=== PATIENT | male | born 1965 | race Caucasian/White ===

== ENCOUNTER → 2016-10-11 | Outpatient (CLI) | payer OTHER ==
[~2016-10-11] MED LIST: ASPI-482 PO; OLME1TAB PO
[2016-10-11 09:25] LABS: CALCIUM 9.5 mg/dL (8.5-10.1); CREATININE 1.4 mg/dL (0.7-1.3); POTASSIUM 3.9 mmol/L (3.5-5.1)
[2016-10-11 09:29] LABS: GFR 53.4
== END | disposition home or self-care (01) ==
LOC: LAB 08:16
PROVIDERS: ATTEND Internal Medicine Cardiovascular Disease
DX: I11.9 Hypertensive heart disease without heart failure (principal)
CPT/HCPCS: 36415; 80048

== ENCOUNTER 2016-11-02 14:45 | Observation (INO) | payer OTHER ==
[~2016-11-02] VITALS: Ht 175.3 cm; Wt 89.4 kg
[2016-11-02 15:18] LABS: BASO % 1 % (0-3); EOS # 0.1 x10^3/uL (0.0-0.7); EOS % 1 % (0-3); HEMATOCRIT 45.6 % (39.0-53.0); HEMOGLOBIN 15.6 g/dL (13.0-17.5); LYMPH # 1.8 x10^3/uL (1.0-4.8); LYMPH % 33 % (24-48); MEAN CORPUSCULAR HEMOGLOBIN 31 pg (25-35); MEAN CORPUSCULAR HGB CONC 34 g/dL (31-37); MEAN CORPUSCULAR VOLUME 91 fL (79-100); MONO # 0.4 x10^3/uL (0.0-1.1); MONO % 7 % (0-9); NEUT # 3.2 x10^3uL (1.8-7.7); NEUT % 58 % (31-73); PLATELET COUNT 203 x10^3/uL (140-400); RED BLOOD COUNT 5.01 x10^6/uL (4.30-5.70); WHITE BLOOD COUNT 5.5 x10^3/uL (4.0-11.0)
--- NOTE | 2016-11-02 15:23 | EKG ---
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
--- NOTE | 2016-11-02 15:27 | RAD ---
Portable chest, 11/02/2016: History: Chest pain Comparison is made to a study from 07/03/2013. The heart size and pulmonary vascularity are normal. No pulmonary infiltrates are seen. There is no evidence of pleural fluid. Moderate spurring is present in the spine. IMPRESSION: No acute cardiopulmonary abnormality is detected.
[2016-11-02] MEDS ORDERED: ASPIRIN 325 MG TABLET PO ONE (15:45)
[2016-11-02] MEDS ORDERED: FENTANYL PF 100 MCG/2 ML VIAL. IV ONE (15:45)
[2016-11-02] MEDS ORDERED: IV NORMAL SALINE 500ML 500 ML IV ONE (15:45)
[2016-11-02 15:48] LABS: ALBUMIN 3.6 g/dL (3.4-5.0); ALBUMIN/GLOBULIN RATIO 1.1 (1.0-1.7); CALCIUM 8.9 mg/dL (8.5-10.1); CREATININE 1.2 mg/dL (0.7-1.3); GFR 63.8; POTASSIUM 3.9 mmol/L (3.5-5.1); TOTAL BILIRUBIN 0.6 mg/dL (0.2-1.0)
--- NOTE | 2016-11-02 16:04 | ED.ADGEN ---
Past History Past Medical History: Hypertension Past Surgical History: Other Additional Past Surgical Histo: right elbow and right wrist Smoking: Quit Greater Than 1 Year Alcohol Use: Occasionally Drug Use: None Adult General Chief Complaint Chief Complaint dizziness, chest pain HPI HPI Patient is a 50 year old male who presents with chest pain. He began experiencing the chest pain for the last 3 days, he describes as burning with radiation to his left neck, left shoulder and down his arm with numbness of the left hand. Today he experienced diaphoresis and nausea when the chest pain occurred. No associated shortness of breath. He's not attempted any symptom controlling medication. He's also been experiencing intermittent dizziness, worse with standing up and moving around, when he looks up at the ceiling he nearly falls over. He has had some sinus congestion, no ear pain, no fevers. Minimal cough. Patient has long family history of cardiac disease with multiple uncles and a sister with heart attacks at a young age. He sees Dr. Dyson, last stress test was greater than 2 years ago. Review of Systems Review of Systems Constitutional: Denies fever or chills [] Eyes: Denies change in visual acuity, redness, or eye pain [] HENT: Denies nasal congestion or sore throat [] Respiratory: Denies cough or shortness of breath [] Cardiovascular: No additional information not addressed in HPI [] GI: Denies abdominal pain, nausea, vomiting, bloody stools or diarrhea [] : Denies dysuria or hematuria [] Musculoskeletal: Denies back pain or joint pain [] Integument: Denies rash or skin lesions [] Neurologic: Denies headache, focal weakness or sensory changes [] Current Medications Current Medications Current Medications Medications (Trade) Dose Ordered Sig/[facility] Start Time Stop Time Status Last Admin Dose Admin Aspirin (Tootie Aspirin) 325 mg 1X ONCE 11/02/16 15:45 11/02/16 15:46 DC 11/02/16 15:45 325 MG Fentanyl Citrate 50 mcg 50 mcg 1X ONCE 11/02/16 15:45 11/02/16 15:46 DC 11/02/16 15:45 50 MCG Meclizine HCl (Antivert) 25 mg 1X ONCE 11/02/16 16:15 11/02/16 16:16 Sodium Chloride (Iv Sodium Chloride 0.9% 500ml) 500 ml @ 0 mls/hr 1X ONCE 11/02/16 15:45 11/02/16 15:46 DC 11/02/16 15:45 500 MLS/HR Allergies Allergies Allergies Coded Allergies Type Severity Reaction Last Updated Verified Amoxicillin Allergy Unknown 07/03/13 Yes codeine Allergy Unknown 07/03/13 Yes Physical Exam Physical Exam Constitutional: Well developed, well nourished, no acute distress, non-toxic appearance. [] HENT: Normocephalic, atraumatic, bilateral external ears normal, oropharynx moist, no oral exudates, nose normal. [] Eyes: PERRLA, EOMI, conjunctiva normal, no discharge. [] Neck: Normal range of motion, no tenderness, supple, no stridor. [] Cardiovascular:Heart rate regular with regular rhythm, no murmur [] Lungs & Thorax: Bilateral breath sounds clear to auscultation, no wheeze, crackles or rhonchi Abdomen: Bowel sounds normal, soft, no tenderness, no masses, no pulsatile masses. [] Skin: Warm, dry, no erythema, no rash. [] Back: No tenderness, no CVA tenderness. [] Extremities: No tenderness, no cyanosis, no clubbing, ROM intact, no edema. [] Neurologic: Alert and oriented X 3, normal motor function, normal sensory function, no focal deficits noted. Cranial nerves II through XII intact Psychologic: Affect normal, judgement normal, mood normal. [] Current Patient Data Lab Results Laboratory Tests Test 11/02/16 14:38 11/02/16 14:58 White Blood Count 5.5x10^3/uL (4.0-11.0) Red Blood Count 5.01x10^6/uL (4.30-5.70) Hemoglobin 15.6g/dL (13.0-17.5) Hematocrit 45.6% (39.0-53.0) Mean Corpuscular Volume 91fL (79-100) Mean Corpuscular Hemoglobin 31pg (25-35) Mean Corpuscular Hemoglobin Concent 34g/dL (31-37) Red Cell Distribution Width 13.0% (11.5-14.5) Platelet Count 203x10^3/uL (140-400) Neutrophils (%) (Auto) 58% (31-73) Lymphocytes (%) (Auto) 33% (24-48) Monocytes (%) (Auto) 7% (0-9) Eosinophils (%) (Auto) 1% (0-3) Basophils (%) (Auto) 1% (0-3) Neutrophils # (Auto) 3.2x10^3uL (1.8-7.7) Lymphocytes # (Auto) 1.8x10^3/uL (1.0-4.8) Monocytes # (Auto) 0.4x10^3/uL (0.0-1.1) Eosinophils # (Auto) 0.1x10^3/uL (0.0-0.7) Basophils # (Auto) 0.0x10^3/uL (0.0-0.2) Sodium Level 141mmol/L (136-145) Potassium Level 3.9mmol/L (3.5-5.1) Chloride Level 109mmol/L (98-107) H Carbon Dioxide Level 24mmol/L (21-32) Anion Gap 8 (6-14) Blood Urea Nitrogen 22mg/dL (8-26) Creatinine 1.2mg/dL (0.7-1.3) Estimated GFR (Cockcroft-Gault) 63.8 BUN/Creatinine Ratio 18 (6-20) Glucose Level 128mg/dL (70-99) H Calcium Level 8.9mg/dL (8.5-10.1) Total Bilirubin 0.6mg/dL (0.2-1.0) Aspartate Amino Transferase (AST) 32U/L (15-37) Alanine Aminotransferase (ALT) 83U/L (16-63) H Alkaline Phosphatase 86U/L (46-116) Creatine Kinase 105U/L (39-308) Creatine Kinase MB (Mass) 1.4ng/mL (0.0-3.6) Creatine Kinase MB Relative Index 1.3% (0-4) Troponin I Quantitative < 0.017ng/mL (0-0.055) YZ-Nek-Q-Type Natriuretic Peptide 52pg/mL (0-124) Total Protein 7.0g/dL (6.4-8.2) Albumin 3.6g/dL (3.4-5.0) Albumin/Globulin Ratio 1.1 (1.0-1.7) EKG EKG 11 bpm, sinus, normal axis, normal intervals, no ST elevation or depression appreciated, nonischemic T waves, interpreted by me [] Radiology/Procedures Radiology/Procedures Portable chest, 11/02/2016: History: Chest pain Comparison is made to a study from 07/03/2013. The heart size and pulmonary vascularity are normal. No pulmonary infiltrates are seen. There is no evidence of pleural fluid. Moderate spurring is present in the spine. IMPRESSION: No acute cardiopulmonary abnormality is detected. [] Course & Med Decision Making Course & Med Decision Making Pertinent Labs and Imaging studies reviewed. (See chart for details) Patient was given full dose aspirin, IV fentanyl as initial blood pressure slightly low. 500 mL normal saline bolus was given. Orthostatics ordered, chest x-ray and labwork unremarkable. Patient sounds to have vertigo but also concerning chest pain with strong family history. No acute findings on ED workup. By mouth meclizine was also ordered. Directed to Dr. Ferguson who agreed to accept this patient to telemetry. Patient was agreeable to admission. Final Impression Final Impression unstable angina vertigo[] Problems: Dragon Disclaimer Dragon Disclaimer This electronic medical record was generated, in whole or in part, using a voice recognition dictation system. DEMI DUNBAR MD Nov 02, 2016 16:04
[2016-11-02] MEDS ORDERED: MECLIZINE 25 MG TABLET PO ONE (16:15)
[2016-11-02] MEDS ORDERED: ONDANSETRON PF 4 MG/2 ML VIAL. IV PRN (16:15)
--- NOTE | 2016-11-02 16:47 | ACF ---
Admission Criteria Forms TELEMETRY CARE Telemetry Admission Guidelines (Place 'X' for any and all applicable criteria): Admission to telemetry [A] may be indicated for ANY ONE of the following(1)(2)(3 )(4)(5): [x]I. Cardiac disease, including ANY ONE of the following (9)(10)(11)(12)(13 ): [ ]a) Postacute HI [ ]b) Low-risk patients with ST-segment elevation HI who have undergone successful percutaneous coronary intervention [x]c) Unstable angina [ ]d) Suspected HI (until it is ruled out) [ ]e) Post cardiac surgery (first 48 to 72 hours unless complications occur) [ ]f) Acute arrhythmias (including significant tachycardia or bradycardia) [B] [ ]g) Firing of an implantable cardioverter defibrillator [C] [ ]h) Suspected pacemaker or implantable cardioverter defibrillator malfunction (10) [ ]i) New administration or adjustment of an antiarrhythmic drug [D ] [ ]j) Child admitted for acute congestive heart failure [ ]j) Long QT syndrome [ ]k) Advanced heart block (eg, second-degree Mobitz type II, third- degree heart block) [ ]l) Acute myocarditis or pericarditis [ ]m) Short-term (ambulatory or inpatient) monitoring after a cardiac procedure as indicated by ANY ONE of the following [E]: [ ]i) Electrophysiologic studies [ ]ii) Percutaneous coronary intervention with stent placement [ ]iii) Pacemaker placement with cardiac conduction defect [ ]iv) Implantable cardiac defibrillator placement [ ]II. Drug overdose or poisoning with substance that causes arrhythmias or QT prolongation (eg, phenothiazines, sympathomimetic agents, cyclic antidepressants, digitalis, antiarrhythmic drugs)(15) [ ]III. Short-term (ambulatory or inpatient) monitoring after therapeutic or diagnostic procedure requiring conscious sedation or anesthesia (eg, endoscopy, elective cardioversion) [ ]IV. Acute cerebrovascular even[F](18) [ ]V. Massive blood transfusion (eg, at least 10 units of packed red blood cells in 24 hours) [ ]. Variceal bleeding after endoscopy, sclerotherapy, or IV vasopressin [ ]VII. Uncorrected electrolyte abnormalities associated with an increased risk of dangerous arrhythmia [G]; examples include [ ]a) Hyperkalemia with attributable ECG changes [ ]b) Potassium greater than 6.5 mmol/L (mEq/L) in a patient without history of chronic renal disease [ ]c) Prolonged QT attributed to hypokalemia, hypomagnesemia, or hypocalcemia [ ]VIII.Unexplained syncope or other neurologic event suspected of being due to arrhythmia due to a finding that increases risk; examples include(19)(20)(21): [ ]a) High-risk ECG findings (eg, bifascicular block, bradycardia, abnormal QT interval, ventricular pre- excitation) [ ]b) History of previous syncope due to arrhythmia [ ]c) Abnormal ventricular function (eg, reduced ejection fraction ) [ ]d) Exertional or supine syncope [ ]e) Concerning syncope characteristics (eg, sudden loss of consciousness without prodrome) [ ]f) Family history of sudden [ ]g) Use of arrhythmogenic medication [ ]h) Suspected cardiac ischemia [ ]i) Known channelopathy (eg, long QT syndrome, Brugada syndrome, or catecholaminergic paroxysmal ventricular tachycardia) [ ]j) Known structural heart disease (eg, hypertrophic cardiomyopathy , severe valvular disease) [ ]k) Palpitations preceding syncope The original [employer] content created by [employer] has been revised. The portions of the content which have been revised are identified through the use of italic text or in bold, and [employer] has neither reviewed nor approved the modified material. All other unmodified content is copyright [employer]. Please see references footnoted in the original [employer] edition 2016 Admission Criteria Met?: Yes CLEO DOMINGUEZ Nov 02, 2016 16:47
[2016-11-02 17:24] VITALS: BP 109/74
[2016-11-02 17:39] VITALS: BP 109/74
[2016-11-02] MEDS ORDERED: HYDROCODONE/APAP 5/325MG TABLET. PO PRN (18:15)
[2016-11-02] MEDS: FENTANYL PF 100 MCG/2 ML VIAL. IV PRN (19:51)
[2016-11-02 20:10] VITALS: BP 129/70
[2016-11-02 23:09] VITALS: BP 97/61
[2016-11-03 05:51] VITALS: BP 120/77
--- NOTE | 2016-11-03 08:49 | PDOC2 ---
CONSULT Date of Admission DATE: 11/03/16 TIME: 08:44 Reason for Consult: chest pain Problem List Problems Medical Problems: (1) Unstable angina Status: Acute History of Present Illness Mr Morel is a 50 year old male with history of hypertension who presents with complaints of lightheadedness with presyncope and chest discomfort. He reports chest pain off and on for 3 days. Pain is described as a mid sternal burning that radiates to his neck, shoulder and arm. He reports it has been intermittent lasting up to an hour. He is unsure of exacerbating or relieving factors. He reports additional numbness in his left hand intermittently. He currently does not have chest pain but continues to complain of neck pain and intermittent arm pain, worse with movement of his head. He complains of lightheadedness with feeling like passing out. He describes associated nausea and seeing spots. He reports this has been occurring when he stands up. He also had some episodes with just sitting up. He reported improvement with laying down. He reports previous episodes of lightheadedness and vision going dark when he would look up, most often occurring at work. He denies palpitations or congestive symptoms. He reports no problems with his functional capacity and is able to climb a flight of stairs as well as up and down ladders at work, without symptoms prior to the last week. Blood pressure was noted to be on the low side in the ED and he was given a 500cc bolus of fluids. Past Medical History hypertension normal stress test 2012 normal LVEF by echo 2010 Past Surgical History cholecystectomy right elbow surgery Family History significant for extensive premature coronary disease Social History prior smoker, quit multiple years ago. no etoh, no illicit drugs Works in [employer] Current Medications Current Medications Aspirin (Tootie Aspirin) 325 mg 1X ONCE PO Last administered on 11/02/16 15:45 ; Start 11/02/16 at 15:45; Stop 11/02/16 at 15:46; Status DC Fentanyl Citrate 50 mcg 50 mcg 1X ONCE IV Last administered on 11/02/16 15:45 ; Start 11/02/16 at 15:45; Stop 11/02/16 at 15:46; Status DC Sodium Chloride (Iv Sodium Chloride 0.9% 500ml) 500 ml @ 0 mls/hr 1X ONCE IV Last administered on 11/02/16 15:45; Start 11/02/16 at 15:45; Stop 11/02/16 at 15:46; Status DC Meclizine HCl (Antivert) 25 mg 1X ONCE PO Last administered on 11/02/16 16:15 ; Start 11/02/16 at 16:15; Stop 11/02/16 at 16:16; Status DC Ondansetron HCl (Zofran) 4 mg PRN Q4HRS PRN IV NAUSEA/VOMITING; Start 11/02/16 at 16:15; Stop 11/03/16 at 16:14 Fentanyl Citrate (Fentanyl 2ml Vial) 50 mcg PRN Q2HR PRN IV PAIN Last administered on 11/02/16 19:51; Start 11/02/16 at 16:15; Stop 11/03/16 at 16:14 Acetaminophen/ Hydrocodone Bitart (Lortab 5/325) 1 tab PRN Q4HRS PRN PO PAIN; Start 11/02/16 at 18:15; Stop 11/02/16 at 20:01; Status DC Active Scripts Active Reported Aspir 81 (Aspirin) 81 Mg Tablet.dr 81 Mg PO DAILY Benicar Hct 20-12.5 Mg Tablet (Olmesartan/Hydrochlorothiazide) 1 Each Tablet 1 Each PO BID Allergies: Coded Allergies: amoxicillin (Verified Allergy, Intermediate, 11/03/16) codeine (Verified Allergy, Intermediate, Swelling, 11/03/16) hydrocodone (Verified Adverse Reaction, Intermediate, Itching, 11/02/16) Review of System as per HPI General: Alert, Oriented X3, Cooperative, No acute distress HEENT: Atraumatic, EOMI, Mucous membr. moist/pink, Other (no carotid bruits) Lungs: Clear to auscultation Heart: Regular rate, Normal S1, Normal S2, Other (no significant murmurs, clicks or rubs) Abdomen: Normal bowel sounds, Soft, No tenderness Extremities: No clubbing, No cyanosis, No edema, Normal pulses Neuro: Normal speech, Strength at 5/5 X4 ext Psych/Mental Status: Mental status NL, Mood NL VITALS Vital Signs Date Time Temp Pulse Resp B/P Pulse Ox O2 Delivery O2 Flow Rate FiO2 11/03/16 05:51 97.5 72 18 120/77 95 Room Air Labs Laboratory Tests Test 11/02/16 14:38 11/02/16 14:58 11/02/16 21:18 11/03/16 03:10 White Blood Count 5.5x10^3/uL (4.0-11.0) Red Blood Count 5.01x10^6/uL (4.30-5.70) Hemoglobin 15.6g/dL (13.0-17.5) Hematocrit 45.6% (39.0-53.0) Mean Corpuscular Volume 91fL (79-100) Mean Corpuscular Hemoglobin 31pg (25-35) Mean Corpuscular Hemoglobin Concent 34g/dL (31-37) Red Cell Distribution Width 13.0% (11.5-14.5) Platelet Count 203x10^3/uL (140-400) Neutrophils (%) (Auto) 58% (31-73) Lymphocytes (%) (Auto) 33% (24-48) Monocytes (%) (Auto) 7% (0-9) Eosinophils (%) (Auto) 1% (0-3) Basophils (%) (Auto) 1% (0-3) Neutrophils # (Auto) 3.2x10^3uL (1.8-7.7) Lymphocytes # (Auto) 1.8x10^3/uL (1.0-4.8) Monocytes # (Auto) 0.4x10^3/uL (0.0-1.1) Eosinophils # (Auto) 0.1x10^3/uL (0.0-0.7) Basophils # (Auto) 0.0x10^3/uL (0.0-0.2) Sodium Level 141mmol/L (136-145) Potassium Level 3.9mmol/L (3.5-5.1) Chloride Level 109mmol/L (98-107) Carbon Dioxide Level 24mmol/L (21-32) Anion Gap 8 (6-14) Blood Urea Nitrogen 22mg/dL (8-26) Creatinine 1.2mg/dL (0.7-1.3) Estimated GFR (Cockcroft-Gault) 63.8 BUN/Creatinine Ratio 18 (6-20) Glucose Level 128mg/dL (70-99) Calcium Level 8.9mg/dL (8.5-10.1) Total Bilirubin 0.6mg/dL (0.2-1.0) Aspartate Amino Transf (AST/SGOT) 32U/L (15-37) Alanine Aminotransferase (ALT/SGPT) 83U/L (16-63) Alkaline Phosphatase 86U/L (46-116) Creatine Kinase 105U/L (39-308) Creatine Kinase MB (Mass) 1.4ng/mL (0.0-3.6) Creatine Kinase MB Relative Index 1.3% (0-4) Troponin I Quantitative < 0.017ng/mL (0-0.055) < 0.017ng/mL (0-0.055) < 0.017ng/mL (0-0.055) RT-Bwe-E-Type Natriuretic Peptide 52pg/mL (0-124) Total Protein 7.0g/dL (6.4-8.2) Albumin 3.6g/dL (3.4-5.0) Albumin/Globulin Ratio 1.1 (1.0-1.7) Images EKG - sinus rhythm, LAD, non specific abn. CXR - IMPRESSION: No acute cardiopulmonary abnormality is detected. Assessment/Plan 1. Chest pain, AK ruled out. Suggest MPI and echocardiogram. Asa daily and check lipids. If stress portion of MPI normal could potentially discharge today. 2. lightheadedness - appears to be more orthostatic in nature but has additional intermittent symptoms of presyncope with neck extension. Will check carotid sono. Suggest outpatient event monitor as well. 3. hypertension - well controlled. recent increase of blood pressure meds but reported non compliance. May need to discontinue HCTZ. 4. neck and arm pain- more consistent with cervical radiculopathy. Would follow up with PCP outpatient for possible MRI. 5. dyslipidemia - check lipids 6. prob sleep apnea - sleep study scheduled next week. Problems: [facility] [employer] Nov 03, 2016 08:49
[2016-11-03] MEDS ORDERED: ASPIRIN 81 MG TAB.CHEW PO SCH (09:30)
[2016-11-03 09:53] VITALS: BP 119/79
[2016-11-03 09:55] VITALS: BP 113/81
[2016-11-03 09:57] VITALS: BP 120/73
[2016-11-03] MEDS ORDERED: REGADENOSON 0.4 MG/5 ML DISP.SYRIN. IV ONE (10:45)
[2016-11-03] MEDS: FENTANYL PF 100 MCG/2 ML VIAL. IV PRN (10:51)
--- NOTE | 2016-11-03 11:34 | CARD ---
APPROVED REPORT EXAM: Two-dimensional and M-mode echocardiogram with Doppler and color Doppler. Other Information Quality : Average Rhythm : Bradycardia INDICATION Hypertension/HCVD Chest Pain 2D DIMENSIONS RVDd3.0 (2.9-3.5cm)Left Atrium(2D)4.4 (1.6-4.0cm) IVSd0.8 (0.7-1.1cm)Aortic Root(2D)3.2 (2.0-3.7cm) LVDd5.2 (3.9-5.9cm)LVOT Diameter2.2 (1.8-2.4cm) PWd0.9 (0.7-1.1cm)LVDs3.4 (2.5-4.0cm) FS (%) 35.8 %SV85.0 ml Aortic Valve AoV Peak Sigifredo.120.2cm/sAoV VTI29.6cm AO Peak GR.5.8mmHgLVOT Peak Sigifredo.101.6cm/s LVOT VTI 24.71cmAO Mean GR.3mmHg MICHAEL (VMAX)3.73hj9OKO (VTI)3.17cm2 Mitral Valve MV E Wmnutptg18.8cm/sMV DECEL [id number] MV A Qprwlunu07.0cm/sMV UGB00yl E/A Ratio1.1MV A [id number] MVA (PHT)4.33cm2 Tricuspid Valve TR P. Lpjdoikr598hb/sRAP ZFDWLFXA0vqBc TR Peak Gr.63vkZfQBZT76itZa Pulmonary Vein S1 Qkjiwgqn53.6cm/sD2 Hnxevcxj19.9cm/s LEFT VENTRICLE The left ventricle is normal size. There is normal left ventricular wall thickness. Left ventricle sy stolic function is normal. The Ejection Fraction is 55-60%. There is normal LV segmental wall motion. The left ventricular diastolic function and filling is normal for age. RIGHT VENTRICLE The right ventricle is normal size. The right ventricular systolic function is normal. ATRIA The left atrium is borderline dilated. The right atrium size is normal. The interatrial septum is int act with no evidence for an atrial septal defect or patent foramen ovale as noted on 2-D or Doppler i maging. AORTIC VALVE The aortic valve is normal in structure and function. The aortic valve is trileaflet. Doppler and Col or Flow revealed no significant aortic regurgitation. There is no significant aortic valvular stenosi s. MITRAL VALVE The mitral valve is normal in structure. There is no mitral valve stenosis. Doppler and Color Flow re vealed mild mitral regurgitation. TRICUSPID VALVE The tricuspid valve is normal in structure and function. Doppler and Color Flow revealed trace to mil d tricuspid regurgitation. The PA pressure was estimated at 23 mmHg. There is no tricuspid valve sten osis. PULMONIC VALVE The pulmonic valve is not well visualized. Doppler and Color Flow revealed no pulmonic valvular regur gitation. There is no pulmonic valvular stenosis. GREAT VESSELS The aortic root is normal in size. Normal pulmonary venous flow (Doppler). The IVC is normal in size and collapses >50% with inspiration. PERICARDIAL EFFUSION There is no evidence of significant pericardial effusion. Critical Notification Critical Value: No <Conclusion> The left ventricle is normal size. Left ventricle systolic function is normal. The Ejection Fraction is 55-60%. There is no significant aortic valvular stenosis. Doppler and Color Flow revealed no significant aortic regurgitation. Doppler and Color Flow revealed mild mitral regurgitation. Doppler and Color Flow revealed trace to mild tricuspid regurgitation. The PA pressure was estimated at 23 mmHg.
--- NOTE | 2016-11-03 13:22 | HP ---
ADMIT DATE: 11/03/2016 HISTORY OF PRESENT ILLNESS: The patient is a 50-year-old male patient, who apparently came to the Emergency Room complaining of chest pain. His pain has been going on and off for the last 3 days. He did complain also of lightheadedness and dizziness and discomfort. The pain is midsternal, radiates to his neck, shoulder and arm. He did complain of nausea, but no vomiting. Dizziness and lightheadedness happens when he stands up. He stated that all this started yesterday when he was at home. He was not even actually exerting himself or working. 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 He has a very significant family history of premature coronary artery disease and therefore, the patient was admitted to rule out myocardial infarction, to consult the cardiology team. His first set of cardiac enzymes showed troponin to be less than 0.017. PAST MEDICAL HISTORY: Significant for hypertension. He also stated that he has gastric ulcers when he was in his 20s. PAST SURGICAL HISTORY: Significant for cholecystectomy, right elbow fracture, status post open reduction and internal fixation and esophagogastroduodenoscopy. ALLERGIES: He is allergic to CODEINE and AMOXICILLIN. MEDICATIONS: He is currently on Benicar 20/12.5 mg 1 tablet once a day and aspirin 81 mg once a day. FAMILY HISTORY: He has 3 sisters, two older and one younger. One of the older sisters has multiple medical problems, although he was not able to tell me specifically what they are. His father apparently left when he was [age] year old. He does not know anything about him. His mother at the age of 60 because of lung cancer; however, he has 2 uncles with premature coronary artery disease, one of them at the age of 28 because of myocardial infarction, the other one at age of 32 because of myocardial infarction, uncle has had about 8 heart attacks by the age of 40, although likely still alive at the age of 62. SOCIAL HISTORY: He is . He has 5 daughters and one son. He quit smoking in the year 1999. He used to smoke a pack a day and smoked for 20 years. He quit drinking alcohol about 3 years ago. He does not use any drugs and works as a trail construction worker. REVIEW OF SYSTEMS: The patient denied any blurring of vision, cataract, glaucoma or macular degeneration. Denied any earache, tinnitus or sensorineural deafness. Denied any nosebleeds, stuffy nose or postnasal drip. Denied any sore throat, sore tongue, toothache, hoarseness of voice or difficulty swallowing. He did complain of nausea, but no vomiting. Denied any hematemesis, melena or hematochezia. Denied any dysuria, frequency or hematuria. He did obviously complaint of chest pain and shortness of breath, but denied any shortness of breath. He did complain of dizziness and lightheadedness. PHYSICAL EXAMINATION: GENERAL: On arrival to the Emergency Room on admission, the patient looked well and was clearly in no apparent respiratory distress, pale, no jaundice, cyanosis or thyromegaly. No jugular venous distention. No limb edema. VITAL SIGNS: His heart rate was 78, blood pressure was 100/71, temperature was 98.3, respiratory rate was 18 and oxygen saturation was 94%. HEAD, EYES, EARS, NOSE AND THROAT: Showed normocephalic, atraumatic. NECK: Supple. HEART: Showed normal first and second heart sounds with no gallop, rub or murmur. CHEST: Clear to auscultation. No crepitation or rhonchi. ABDOMEN: Distended, soft, nontender. NEUROLOGIC: He was awake, alert, responding appropriately. Cranial nerves intact. EXTREMITIES: He moves extremities without difficulty. He ambulates without assistance or assistive devices. LABORATORY DATA: Showed serum sodium was 141, potassium 3.9, chloride 109, bicarbonate 24, anion gap of 8, BUN 22, creatinine 1.2, estimated GFR was 64 mL per minute. His glucose was 128, calcium was 8.9. Total bilirubin, AST, ALT, alkaline phosphatase were normal. His first set of cardiac enzymes showed troponin to be less than 0.017. Beta natriuretic peptide was 52. Total protein was 7 and albumin was 3.6 grams per deciliter. His white cell count was 5500, hemoglobin 15.6, hematocrit 45.6, MCV 91, and platelet count of 203,000 with normal manual differential. He apparently has had an EKG, which showed that he was in sinus rhythm with left atrial enlargement, but nonspecific abnormalities. His chest x-ray showed that the heart size and pulmonary vascularity are normal. No pulmonary infiltrates are seen. There is no evidence of pleural fluid, moderate sparing present in the spine. ASSESSMENT AND PLAN: The patient was admitted due to two more sets of cardiac enzymes, check his fasting lipid profile and also consult the cardiology team. Given that he is an ex-smoker, he has hypertension and that he has extensive family history. SUGAR GARRETT MD DR: LOYDA/mabel JOB#: [id number] / [id number]
--- NOTE | 2016-11-03 15:07 | RAD ---
APPROVED REPORT Test Type: Pharmacological Stress Nurse/Tech: RT Wagner RoaR) (N) Test Indications: chest pain and lightheadedness Cardiac History: family history Medications: see ehr Medical History: see ehr Resting ECG: sinus rhythm Resting Heart Rate: 51 bpm Resting Blood Pressure: 113/74mmHg Nurse/Tech Notes Consent: The procedure was explained to the patient in lay terms. Informed consent was witnessed. Bruce eout was entered into [employer]. History and Stress Test performed by RT Janina (R) (N) Pharm. Details Pharmacologic stress testing was performed using 0.4mg per 5ml of regadenoson given intravenously ove r 7-10 seconds. POST EXERCISE Reason for Termination: Infusion complete Max HR: 91 bpm Max Blood Pressure: 120/73mmHg INTERPRETATION Stress EKG Conclusion: no acute abnormalities, patient was short of breath with lexiscan Imaging Protocol IMAGE PROTOCOL: Stress Tc-99m/rest Tc-99m 2 days Rest: Stress: Viability: Radiopharm.Tc99m Sestamibi [id number] Duration 15min. Img Date 11/03/2016 Inj-Img [id number]. Stress Admin Site: IV - Right AntecubitalAdministrator: RT Wagner RoaR)(N) STRESS DATA End Diast. Vol.136.0mlAv. Heart Rate67.0bpm LVEDV index BSA2.0mlCardiac Output0.1L/min End Syst. Vol.41.0mlCO Index BSA6.4L/min LVESV index BSA1.0mlMyocardial Hbun073.0g Eject. Qlqlhxbq51.0% Stress Rates Pk. Fill Rate3.24EDV/secLVtime Pk. Fill 146.76msec Pk. Empty Rate3.52ESV/secLVtime Pk. Aalhw376.65msec 07/26 Pk. Fill1.69EDV/sec Stress Scores Regional WT0.00Summed WT0.00 Regional WM0.00Summed WM2.00 LV Perfusion Normal myocardial perfusion at stress. LV Perf. Quant 17 Seg. SSS1.00 Stress Defect Extent (% LAD)2.50Rest Defect Extent (% LAD)Rev. Defect Extent (% LAD)0.00 Stress Defect Extent (% LCX) 0.00Rest Defect Extent (% LCX)Rev. Defect Extent (% LCX)0.00 Stress Defect Extent (% RCA)0.00Rest Defect Extent (% RCA)Rev. Defect Extent (% RCA)0.00 Stress Defect Extent (% RAYMOND)0.90Rest Defect Extent (% RAYMOND)Rev. Defect Extent (% RAYMOND)0.00 Other Information Quality:Average Conclusion 1. No evidence of stress induced EKG changes 2. Normal myocardial perfusion at stress. 3. Normal EF at > 70% 4. Low risk study
[2016-11-03 15:34] VITALS: BP 128/72
--- NOTE | 2016-11-03 16:17 | RAD ---
Bilateral carotid arterial duplex study 11/03/2016 Clinical History: Chest pain, headache and left-sided neck pain. Dizziness and lightheadedness. Hypertension. Technique: Using a combination of real-time ultrasound imaging and color-flow and pulse Doppler imaging techniques, duplex evaluation of the carotid and vertebral arterial structures within the neck was performed. Multiple images were obtained. Findings: Minimal atheromatous/atherosclerotic plaque formation is seen involving both carotid bifurcations. The peak systolic velocities are not significantly elevated. No hemodynamically significant stenosis is seen. The vertebral arteries demonstrate normal antegrade flow. Impression: Minimal atheromatous/atherosclerotic plaque formation is seen involving both carotid bifurcations. No hemodynamically significant stenosis is seen. Please note that stenosis calculations for carotid ultrasound studies are derived from validated velocity criteria which are known to correlate with the NASCET methodology.
[2016-11-03] MEDS ORDERED: FENTANYL PF 100 MCG/2 ML VIAL. IV PRN (17:00)
--- NOTE | 2016-11-03 21:10 | PN ---
DATE: 11/03/2016 SUBJECTIVE: The patient was admitted yesterday with recurrent episode of chest pain, given that he has hypertension, ex-smoker, he has very strong family history, he was admitted and has had actually 3 sets of cardiac enzymes, all of them were less than 0.017. We did consult the cardiology team and basically he has had an echocardiogram done, which showed that his left ventricular size is normal and systolic function is normal with an ejection fraction of 55-60%. There is no significant aortic valvular stenosis or regurgitation. There is mild mitral regurgitation, trace tricuspid regurgitation. Pulmonary artery pressure was estimated at 23 mm per hour. He is scheduled for nuclear stress test as well as bilateral carotid Doppler ultrasound and a decision would be made regarding further management according to the finding. When I saw him this afternoon, he was resting slightly propped up in bed, in no apparent respiratory distress, awake, alert, questioning him, denied any complaint. The nursing staff did not voice any concern and stated that he had an uneventful night. PHYSICAL EXAMINATION: GENERAL: When I examined him, he was slightly pale, but no jaundice, cyanosis, or thyromegaly. No jugular venous distension. No limb edema. VITAL SIGNS: His heart rate was 73, blood pressure 120/73, temperature was 98.3, respiratory rate was 18 and oxygen saturation was 96% on room air. The rest of clinical examination is unremarkable and has not really changed. LABORATORY DATA: His lab work showed that 2 more sets of cardiac enzymes were less than 0.017. His echocardiogram showed that his left ventricular size and systolic function are normal with ejection fraction of 55-60%, no significant valvular stenosis or regurgitation with normal pulmonary artery pressure. PLAN: Obviously to proceed with bilateral carotid Doppler ultrasound and nuclear stress test and we will decide on further management accordingly. SUGAR GARRETT MD DR: LOYDA/mabel JOB#: [id number] / [id number]
== END 2016-11-03 17:42 | disposition home or self-care (01) ==
LOC: ER 14:45 → INTOOBSV 17:08 → 1 SOUTH 17:08
PROVIDERS: ADMIT Internal Medicine; ATTEND Internal Medicine
DX: R07.9 Chest pain, unspecified (principal); R55 Syncope and collapse; I10 Essential (primary) hypertension; M79.603 Pain in arm, unspecified; M54.2 Cervicalgia; E78.5 Hyperlipidemia, unspecified; F17.210 Nicotine dependence, cigarettes, uncomplicated; Z82.49 Family history of ischemic heart disease and other diseases of the circulatory system; Z80.1 Family history of malignant neoplasm of trachea, bronchus and lung
CPT/HCPCS: 36415; 71010; 78452; 80053; 80061; 82553; 83880; 84484; 85027; 93005; 93017; 93306; 93880; 96361; 96374; 96376; 99285; A9500; G0378; J2785; J3010; J7040; J8597; 96375; G0379

== ENCOUNTER 2017-02-06 06:23 | Emergency (ER) | payer OTHER ==
[~2017-02-06] VITALS: Ht 175.3 cm; Wt 83.9 kg
[~2017-02-06 06:23] MED LIST changes: -OLME1TAB PO; +OLME1TAB21 PO
--- NOTE | 2017-02-06 06:28 | ED.ADGEN ---
Past History Past Medical History: Hypertension, Kidney Stones Past Surgical History: Cholecystectomy, Other Additional Past Surgical Histo: right elbow and right wrist Smoking: Quit Greater Than 1 Year Alcohol Use: Sober Drug Use: Cocaine Adult General Chief Complaint Chief Complaint Nausea, hypertension HPI HPI Patient is a 51 year old male who presents with male who complains. He states he got up this morning he felt very weird felt lightheaded dizzy, had since chest discomfort is anterior chest that radiates into his throat and then vomited several times. He states his blood pressures elevated. He also woke up yesterday with a red eye. He denies any pain in the eye. He denies any chest discomfort this time but states he feels slightly short of breath. He denies any fevers chills. He does complain of a discomfort in his left arm with this going on this morning. Currently he denies any nausea or vomiting. He denies any abdominal pain. He spoke with his photographic developer and printer who wanted to be evaluated based on his symptoms. He states he did get a stress test 3 months ago and that was normal. He has a remote history of smoking and stopped 20 years ago. Review of Systems Review of Systems Constitutional: Denies fever or chills [] Eyes: Denies change in visual acuity, redness, or eye pain [] HENT: Denies nasal congestion or sore throat [] Respiratory: Denies cough or shortness of breath [] Cardiovascular: No additional information not addressed in HPI [] GI: Denies abdominal pain, nausea, vomiting, bloody stools or diarrhea [] : Denies dysuria or hematuria [] Musculoskeletal: Denies back pain or joint pain [] Integument: Denies rash or skin lesions [] Neurologic: Denies headache, focal weakness or sensory changes [] Endocrine: Denies polyuria or polydipsia [] Current Medications Current Medications Current Medications Medications (Trade) Dose Ordered Sig/Brenda Start Time Stop Time Status Last Admin Dose Admin Acetaminophen (Tylenol) 1,000 mg 1X ONCE 02/06/17 08:20 02/06/17 08:21 DC 02/06/17 09:00 1,000 MG Aspirin (Tootie Aspirin) 325 mg 1X ONCE 02/06/17 08:45 02/06/17 08:46 DC 02/06/17 08:45 325 MG Dopamine HCl/ Dextrose 250 ml @ 15.734 mls/ hr 1X ONCE 02/06/17 08:25 02/06/17 11:12 DC 02/06/17 08:25 15.734 MLS/HR Nitroglycerin (Nitrostat) 0.4 mg 1X ONCE 02/06/17 08:45 02/06/17 08:46 DC 02/06/17 08:45 0.4 MG Ondansetron HCl (Zofran) 4 mg 1X ONCE 02/06/17 09:00 02/06/17 09:01 DC 02/06/17 09:00 4 MG Sodium Chloride 1,000 ml @ 75 mls/hr 1X ONCE 02/06/17 11:00 02/06/17 11:12 DC 02/06/17 10:50 75 MLS/HR Allergies Allergies Allergies Coded Allergies Type Severity Reaction Last Updated Verified amoxicillin Allergy Intermediate 11/03/16 Yes codeine Allergy Intermediate Swelling 11/03/16 Yes hydrocodone Adverse Reaction Intermediate Itching 11/02/16 Yes Physical Exam Physical Exam Constitutional: Well developed, well nourished, no acute distress, non-toxic appearance. [] HENT: Normocephalic, atraumatic, bilateral external ears normal, oropharynx moist, no oral exudates, nose normal. [] Eyes: PERRLA, EOMI, conjunctiva normal, no discharge. [] Neck: Normal range of motion, no tenderness, supple, no stridor. [] Cardiovascular:Heart rate regular rhythm, no murmur [] Lungs & Thorax: Bilateral breath sounds clear to auscultation [] Abdomen: Bowel sounds normal, soft, no tenderness, no masses, no pulsatile masses. [] Skin: Warm, dry, no erythema, no rash. [] Back: No tenderness, no CVA tenderness. [] Extremities: No tenderness, no cyanosis, no clubbing, ROM intact, no edema. [] Neurologic: Alert and oriented X 3, normal motor function, normal sensory function, no focal deficits noted. [] Psychologic: Affect normal, judgement normal, mood normal. [] Current Patient Data Vital Signs Vital Signs Date Time Temp Pulse Resp B/P (MAP) Pulse Ox O2 Delivery O2 Flow Rate FiO2 02/06/17 11:00 16 18 123/81 (95) 96 Nasal Cannula 2.0 02/06/17 06:45 98.2 Lab Results Laboratory Tests Test 02/06/17 07:16 02/06/17 07:35 White Blood Count 4.6 x10^3/uL (4.0-11.0) Red Blood Count 4.49 x10^6/uL (4.30-5.70) Hemoglobin 14.2 g/dL (13.0-17.5) Hematocrit 41.1 % (39.0-53.0) Mean Corpuscular Volume 92 fL (79-100) Mean Corpuscular Hemoglobin 32 pg (25-35) Mean Corpuscular Hemoglobin Concent 35 g/dL (31-37) Red Cell Distribution Width 13.0 % (11.5-14.5) Platelet Count 172 x10^3/uL (140-400) Neutrophils (%) (Auto) 41 % (31-73) Lymphocytes (%) (Auto) 48 % (24-48) Monocytes (%) (Auto) 9 % (0-9) Eosinophils (%) (Auto) 2 % (0-3) Basophils (%) (Auto) 1 % (0-3) Neutrophils # (Auto) 1.9 x10^3uL (1.8-7.7) Lymphocytes # (Auto) 2.2 x10^3/uL (1.0-4.8) Monocytes # (Auto) 0.4 x10^3/uL (0.0-1.1) Eosinophils # (Auto) 0.1 x10^3/uL (0.0-0.7) Basophils # (Auto) 0.0 x10^3/uL (0.0-0.2) Sodium Level 143 mmol/L (136-145) Potassium Level 3.7 mmol/L (3.5-5.1) Chloride Level 110 mmol/L (98-107) H Carbon Dioxide Level 27 mmol/L (21-32) Anion Gap 6 (6-14) Blood Urea Nitrogen 26 mg/dL (8-26) Creatinine 1.1 mg/dL (0.7-1.3) Estimated GFR (Cockcroft-Gault) 70.3 Glucose Level 127 mg/dL (70-99) H Calcium Level 9.0 mg/dL (8.5-10.1) Magnesium Level 2.1 mg/dL (1.8-2.4) Total Bilirubin 0.3 mg/dL (0.2-1.0) Direct Bilirubin 0.1 mg/dL (0.0-0.2) Aspartate Amino Transferase (AST) 32 U/L (15-37) Alanine Aminotransferase (ALT) 73 U/L (16-63) H Alkaline Phosphatase 88 U/L (46-116) Creatine Kinase 105 U/L (39-308) Creatine Kinase MB (Mass) 1.0 ng/mL (0.0-3.6) Creatine Kinase MB Relative Index 1.0 % (0-4) Troponin I Quantitative < 0.017 ng/mL (0-0.055) [id number]-Ylp-[id number]-Type Natriuretic Peptide 94 pg/mL (0-124) Total Protein 6.2 g/dL (6.4-8.2) L Albumin 3.3 g/dL (3.4-5.0) L Lipase 132 U/L (73-393) Urine Collection Type Unknown Urine Color Yellow Urine Clarity Clear Urine pH 5.5 Urine Specific [place] 1.020 Urine Protein Neg (NEG-TRACE) Urine Glucose (UA) Neg mg/dL (NEG) Urine Ketones (Stick) Neg mg/dL (NEG) Urine Blood Neg (NEG) Urine Nitrite Neg (NEG) Urine Bilirubin Neg (NEG) Urine Urobilinogen Dipstick 0.2 mg/dL (0.2 mg/dL) Urine Leukocyte Esterase Neg (NEG) Urine RBC 0 /HPF (0-2) Urine WBC 0 /HPF (0-4) Urine Squamous Epithelial Cells Occ /LPF Urine Bacteria 0 /HPF (0-FEW) Urine Opiates Screen Neg (NEG) Urine Methadone Screen Neg (NEG) Urine Barbiturates Neg (NEG) Urine Phencyclidine Screen Neg (NEG) Urine Amphetamine/Methamphetamine Neg (NEG) Urine Benzodiazepines Screen Neg (NEG) Urine Cocaine Screen Neg (NEG) Urine Cannabinoids Screen Neg (NEG) Urine Ethyl Alcohol Neg (NEG) EKG EKG EKG shows sinus rhythm with rate of 1 bpm with left axis deviation, no ST elevations or T-wave inversions appreciated, QTC 420 ms, as interpreted by me. Radiology/Procedures Radiology/Procedures View chest x-ray did not show any focal consolidations, bony abnormality, pneumothorax, as interpreted by me. Course & Med Decision Making Course & Med Decision Making Pertinent Labs and Imaging studies reviewed. (See chart for details) She presents with some chest discomfort, dizziness and nausea. In the ER finally admitted that he has chest pressure sensation of 5 out of 10. He's received aspirin, dopamine 5 mcg/kg/min has been started. Spoke with Carin with cardiology who recommended the patient be transferred to [facility] since is bradycardic and it is unlikely that his medicines are causing this. He did receive nitroglycerin 1 and his chest pain improved. Patient's in stable condition being transferred to [facility] and will be admitted to the hospitalist. Final Impression Final Impression Chest pain Bradycardia Problems: Dragon Disclaimer Dragon Disclaimer This electronic medical record was generated, in whole or in part, using a voice recognition dictation system. SKYLAR SIU MD Feb 06, 2017 06:28
[2017-02-06] MEDS ORDERED: ONDANSETRON PF 4 MG/2 ML VIAL. IV ONE ×2 (07:25→09:00)
[2017-02-06] MEDS ORDERED: IV NORMAL SALINE 1,000ML 1,000 ML IV ONE ×2 (07:25→11:00)
[2017-02-06 07:34] LABS: BASO % 1 % (0-3); EOS # 0.1 x10^3/uL (0.0-0.7); EOS % 2 % (0-3); HEMATOCRIT 41.1 % (39.0-53.0); HEMOGLOBIN 14.2 g/dL (13.0-17.5); LYMPH # 2.2 x10^3/uL (1.0-4.8); LYMPH % 48 % (24-48); MEAN CORPUSCULAR HEMOGLOBIN 32 pg (25-35); MEAN CORPUSCULAR HGB CONC 35 g/dL (31-37); MEAN CORPUSCULAR VOLUME 92 fL (79-100); MONO # 0.4 x10^3/uL (0.0-1.1); MONO % 9 % (0-9); NEUT # 1.9 x10^3uL (1.8-7.7); NEUT % 41 % (31-73); PLATELET COUNT 172 x10^3/uL (140-400); RED BLOOD COUNT 4.49 x10^6/uL (4.30-5.70); WHITE BLOOD COUNT 4.6 x10^3/uL (4.0-11.0)
[2017-02-06 07:50] LABS: ALBUMIN 3.3 g/dL (3.4-5.0); CREATININE 1.1 mg/dL (0.7-1.3); DIRECT BILIRUBIN 0.1 mg/dL (0.0-0.2); GFR 70.3; MAGNESIUM 2.1 mg/dL (1.8-2.4); POTASSIUM 3.7 mmol/L (3.5-5.1); TOTAL BILIRUBIN 0.3 mg/dL (0.2-1.0); TOTAL PROTEIN 6.2 g/dL (6.4-8.2)
[2017-02-06 08:01] LABS: BARBITURATES NEG (NEG); BENZODIAZEPINES NEG (NEG); CANNABINOIDS NEG (NEG); COCAINE NEG (NEG); METHADONE NEG (NEG); OPIATES NEG (NEG); PHENCYCLIDINE NEG (NEG)
[2017-02-06 08:02] LABS: AMPHETAMINE/METHAMPHETAMINE NEG (NEG)
[2017-02-06 08:09] LABS: BACTERIA,URINE 0 /HPF (0-FEW); BILIRUBIN,URINE NEG (NEG); CLARITY,URINE CLEAR; COLOR,URINE YELLOW; GLUCOSE,URINE NEG (NEG); NITRITE,URINE NEG (NEG); RBC,URINE 0 /HPF (0-2); SQUAMOUS EPITHELIAL CELL,UR OCC /LPF; UROBILINOGEN,URINE 0.2 mg/dL (0.2 mg/dL); WBC,URINE 0 /HPF (0-4)
[2017-02-06] MEDS ORDERED: ACETAMINOPHEN 500 MG TABLET PO ONE (08:20)
[2017-02-06] MEDS ORDERED: NITROGLYCERIN SUBLINGUAL 0.4 MG BOTTLE OF 25. SL ONE (08:45)
[2017-02-06] MEDS ORDERED: ASPIRIN 325 MG TABLET PO ONE (08:45)
--- NOTE | 2017-02-06 08:45 | RAD ---
EXAM: Chest one view. HISTORY: Shortness of breath. COMPARISON: 11/02/2016. FINDINGS: A frontal view of the chest is obtained. The inspiration is relatively small. There are no confluent infiltrates. There is no pneumothorax or pleural effusion. The heart is not enlarged. Prominence of the right peritracheal stripe is stable. IMPRESSION: 1. No confluent infiltrates.
[2017-02-06 11:00] VITALS: BP 123/81
== END 2017-02-06 11:08 | disposition short-term general hospital (02) ==
LOC: ER 06:23
DX: R00.1 Bradycardia, unspecified (principal); R07.89 Other chest pain; I10 Essential (primary) hypertension; F14.10 Cocaine abuse, uncomplicated; Z87.442 Personal history of urinary calculi; Z87.891 Personal history of nicotine dependence; Z88.1 Allergy status to other antibiotic agents; Z88.5 Allergy status to narcotic agent
CPT/HCPCS: 36415; 71010; 80048; 80076; 80305; 80320; 81001; 82553; 83690; 83735; 83880; 84443; 84484; 85027; 93005; 96361; 96365; 96366; 96375; 96376; 99285; J1265; J2405; G0481; J7030

== ENCOUNTER → 2017-09-15 | Outpatient (CLI) | payer BC ==
--- NOTE | 2017-09-15 15:22 | RAD ---
Cervical spine, 3 views, 09/15/2017: History: Chronic back pain There is moderate disc space narrowing and marginal spurring at C4-5, C5-6 and C6-7. There are moderate degenerative changes involving scattered facet joints bilaterally. No fracture or dislocation is identified. The prevertebral soft tissues are unremarkable. IMPRESSION: 1. Moderate multilevel degenerative change. 2. No acute bony abnormality is detected. Thoracic spine, 3 views, 09/15/2017: The thoracic vertebral heights are well-maintained. No fracture or dislocation is identified. There are mild scattered marginal spurs. The paraspinous soft tissues are unremarkable. IMPRESSION: 1. Mild scattered degenerative changes. 2. No acute abnormality is detected.
== END | disposition home or self-care (01) ==
LOC: PMG 14:28
PROVIDERS: ATTEND Nurse Practitioner Family
DX: M48.02 Spinal stenosis, cervical region (principal); M46.02 Spinal enthesopathy, cervical region; M47.892 Other spondylosis, cervical region; M47.894 Other spondylosis, thoracic region; M46.04 Spinal enthesopathy, thoracic region; G89.29 Other chronic pain
CPT/HCPCS: 72040; 72072

== ENCOUNTER 2018-06-05 00:15 | Observation (INO) | payer BC ==
[~2018-06-05] VITALS: Ht 175.3 cm; Wt 95.3 kg
--- NOTE | 2018-06-05 00:42 | EKG ---
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
[2018-06-05 00:51] LABS: BASO # 0.1 x10^3/uL (0.0-0.2); BASO % 1 % (0-3); EOS % 0 % (0-3); HEMATOCRIT 50.9 % (39.0-53.0); HEMOGLOBIN 17.8 g/dL (13.0-17.5); LYMPH # 1.6 x10^3/uL (1.0-4.8); LYMPH % 16 % (24-48); MEAN CORPUSCULAR HEMOGLOBIN 32 pg (25-35); MEAN CORPUSCULAR HGB CONC 35 g/dL (31-37); MEAN CORPUSCULAR VOLUME 90 fL (79-100); MONO # 0.3 x10^3/uL (0.0-1.1); MONO % 4 % (0-9); NEUT # 7.6 x10^3uL (1.8-7.7); NEUT % 79 % (31-73); PLATELET COUNT 321 x10^3/uL (140-400); RED BLOOD COUNT 5.63 x10^6/uL (4.30-5.70); WHITE BLOOD COUNT 9.7 x10^3/uL (4.0-11.0)
[2018-06-05] MEDS ORDERED: IV NORMAL SALINE 1,000ML 1,000 ML IV SCH ×2 (01:00→01:59)
[2018-06-05] MEDS ORDERED: MORPHINE SULFATE 4 MG/ML DISP.SYRIN. IV ONE ×2 (01:00→02:15)
[2018-06-05] MEDS ORDERED: ONDANSETRON PF 4 MG/2 ML VIAL. IV ONE (01:00)
--- NOTE | 2018-06-05 01:20 | PHYS DOC ---
Past History Past Medical History: A-Fib, Hypertension, Migraines Past Surgical History: Pacemaker Additional Past Surgical Histo: right elbow and right wrist Smoking: Quit Greater Than 1 Year Alcohol Use: None Drug Use: None Adult General Chief Complaint Chief Complaint: CHEST PAIN HPI HPI Patient is a 52-year-old male who presents with complaint of midsternal to left chest pain that started about an hour ago. Patient states that he has pain that is down the posterior aspect of his left arm as well. He rates the pain to be a 7 out of 10. He states that he had been at [facility] earlier in the day with similar chest pain and states that they had tried to admit him into the hospital but he had gotten to feeling better and because today was his 's birthday he wanted to spend time with her. Patient states that pain had started again after he had gone to bed. He indicates he has no nausea or vomiting. Also denies diaphoresis. Patient also complaining of a headache that he rates at a 9 out of 10. He states he has chronic headaches. Patient states that he does not think that anything specifically worsens his chest pain but nothing improves it either. Review of Systems Review of Systems Constitutional: Denies fever or chills [] Respiratory: Denies cough or shortness of breath [] Cardiovascular: Complains of chest pain[] GI: Denies abdominal pain, nausea, vomiting or diarrhea [] Musculoskeletal: Complains of neck and upper back pain [] Integument: Denies rash or skin lesions [] Neurologic: Complains of headache[] All other systems were reviewed and found to be within normal limits, except as documented in this note. Current Medications Current Medications Current Medications Medications (Trade) Dose Ordered Sig/Brenda Start Time Stop Time Status Last Admin Dose Admin Morphine Sulfate (Morphine 4mg Syringe) 4 mg 1X ONCE 06/05/18 01:00 06/05/18 01:01 DC 06/05/18 01:01 4 MG Ondansetron HCl (Zofran) 4 mg 1X ONCE 06/05/18 01:00 06/05/18 01:01 DC 06/05/18 01:00 4 MG Sodium Chloride 1,000 ml @ 100 mls/hr Q10H 06/05/18 01:00 06/05/18 10:59 06/05/18 01:01 100 MLS/HR Allergies Allergies Allergies Coded Allergies Type Severity Reaction Last Updated Verified amoxicillin Allergy Intermediate 11/03/16 Yes codeine Allergy Intermediate Swelling 11/03/16 Yes hydrocodone Adverse Reaction Intermediate Itching 11/02/16 Yes Physical Exam Physical Exam Constitutional: Well developed, well nourished, no acute distress, non-toxic appearance. [] HENT: Normocephalic, atraumatic, bilateral external ears normal, oropharynx moist, no oral exudates, nose normal. [] Eyes: PERRLA, EOMI, conjunctiva normal, no discharge. [] Neck: Normal range of motion, no tenderness, supple, no stridor. [] Cardiovascular:Heart rate regular rhythm [] Lungs & Thorax: Bilateral breath sounds clear to auscultation [] Abdomen: Bowel sounds normal, soft, no tenderness. [] Skin: Warm, dry, no erythema, no rash. [] Extremities: No tenderness, no cyanosis, no clubbing, ROM intact, no edema. [] Neurologic: Alert and oriented X 3, normal motor function, normal sensory function, no focal deficits noted. [] Current Patient Data Vital Signs Vital Signs Date Time Temp Pulse Resp B/P (MAP) Pulse Ox O2 Delivery O2 Flow Rate FiO2 06/05/18 01:01 18 98 Room Air 06/05/18 01:00 68 125/80 (95) 06/05/18 00:21 98.1 Lab Results Laboratory Tests Test 06/05/18 00:27 White Blood Count 9.7 x10^3/uL (4.0-11.0) Red Blood Count 5.63 x10^6/uL (4.30-5.70) Hemoglobin 17.8 g/dL (13.0-17.5) H Hematocrit 50.9 % (39.0-53.0) Mean Corpuscular Volume 90 fL (79-100) Mean Corpuscular Hemoglobin 32 pg (25-35) Mean Corpuscular Hemoglobin Concent 35 g/dL (31-37) Red Cell Distribution Width 13.0 % (11.5-14.5) Platelet Count 321 x10^3/uL (140-400) Neutrophils (%) (Auto) 79 % (31-73) H Lymphocytes (%) (Auto) 16 % (24-48) L Monocytes (%) (Auto) 4 % (0-9) Eosinophils (%) (Auto) 0 % (0-3) Basophils (%) (Auto) 1 % (0-3) Neutrophils # (Auto) 7.6 x10^3uL (1.8-7.7) Lymphocytes # (Auto) 1.6 x10^3/uL (1.0-4.8) Monocytes # (Auto) 0.3 x10^3/uL (0.0-1.1) Eosinophils # (Auto) 0.0 x10^3/uL (0.0-0.7) Basophils # (Auto) 0.1 x10^3/uL (0.0-0.2) Troponin I Quantitative < 0.017 ng/mL (0-0.055) EKG EKG EKG demonstrates mild sinus tachycardia with rate of 102.[] Radiology/Procedures Radiology/Procedures [] Course & Med Decision Making Course & Med Decision Making Pertinent Labs and Imaging studies reviewed. (See chart for details) [] Dragon Disclaimer Dragon Disclaimer This electronic medical record was generated, in whole or in part, using a voice recognition dictation system. Departure Departure: Impression: Primary Impression: Chest pain at rest Disposition: ADMITTED INPATIENT Admitting Physician: Beronica Ferguson Condition: GOOD Referrals: ADRIANA SERRANO APRN (PCP) HECTOR RUSS Jr. DO Jun 05, 2018 01:20
[2018-06-05 01:27] LABS: ALBUMIN 3.6 g/dL (3.4-5.0); ALBUMIN/GLOBULIN RATIO 0.8 (1.0-1.7); CALCIUM 9.1 mg/dL (8.5-10.1); CREATININE 1.1 mg/dL (0.7-1.3); MAGNESIUM 2.3 mg/dL (1.8-2.4); POTASSIUM 4.1 mmol/L (3.5-5.1); TOTAL BILIRUBIN 0.4 mg/dL (0.2-1.0); TOTAL PROTEIN 7.9 g/dL (6.4-8.2)
[2018-06-05] MEDS ORDERED: ONDANSETRON PF 4 MG/2 ML VIAL. IV PRN (02:00)
[2018-06-05] MEDS ORDERED: MORPHINE SULFATE 4 MG/ML DISP.SYRIN. IV PRN (02:00)
[2018-06-05] MEDS ORDERED: METOCLOPRAMIDE HCL 10 MG/2 ML VIAL. IV ONE (02:15)
[2018-06-05 02:58] VITALS: BP 135/100
[2018-06-05] MEDS ORDERED: ASPI325T11 PO (03:34)
[2018-06-05] MEDS ORDERED: TIZA4TAB PO (03:34)
[2018-06-05] MEDS ORDERED: METO25TA4 PO (03:34)
[2018-06-05] MEDS ORDERED: OXYC1TAB8 PO (03:34)
[2018-06-05] MEDS ORDERED: FLEC50TA PO (03:34)
[2018-06-05 05:02] VITALS: BP 143/90
[2018-06-05] MEDS ORDERED: oxyCODONE/APAP 7.5/325 1 TAB TABLET PO PRN (06:15)
[2018-06-05] MEDS ORDERED: tiZANidine 4 MG TABLET. PO PRN (06:15)
[2018-06-05] MEDS ORDERED: hydroCHLOROthiazide 12.5 MG CAPSULE PO SCH (09:00)
[2018-06-05] MEDS ORDERED: LOSARTAN 50 MG TABLET. PO SCH (09:00)
[2018-06-05] MEDS ORDERED: METOPROLOL TART IMMED RELEASE 25 MG TABLET PO SCH (09:00)
[2018-06-05] MEDS ORDERED: ASPIRIN ENTERIC COATED 325 MG TABLET.DR. PO SCH (09:00)
[2018-06-05] MEDS ORDERED: FLECAINIDE 50 MG TABLET. PO SCH (09:00)
[2018-06-05 09:08] VITALS: BP 143/90
--- NOTE | 2018-06-05 09:12 | PDOC2 ---
CONSULT Date of Admission DATE: 06/05/18 TIME: 09:10 Reason for Consult: chest pain Problem List Problems Medical Problems: (1) Chest pain at rest Status: Acute History of Present Illness Mr Morel is a 52 year old male with history of sick sinus syndrome, paroxysmal atrial fibrillation and permanent pacemaker placement. He most recently underwent echocardiogram which revealed normal LV function in October of last year , MPI which revealed normal perfusion in October of last year and in Aug of this year cardiac catheterization which revealed normal coronaries and LV function. He presents with complaints of chest pain which started yesterday during a cervical epidural injections. He reports mid sternal tightness and shooting pain down the inside of his left arm with occasional associated numbness and paraesthesia. He was seen in the ED at [facility] but declined admission. He presented to [facility] ER as the discomfort did not resolve. He complains of pain ongoing in the chest and down left arm as well as up his neck with associated headache. He reports C spine disease that is reportedly non surgical and just finished his second epidural injection. 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 He denies congestive symptoms but does report snoring and waking up gasping on occasion and his reports episodes of witnessed apnea. Past Medical History cath, Aug 2017 no significant coronary disease EF 55% MPI 11/02/16 normal perfusion echo 10/2016 The left ventricle is normal size. Left ventricle systolic function is normal. The Ejection Fraction is 55-60%. There is no significant aortic valvular stenosis. Doppler and Color Flow revealed no significant aortic regurgitation. Doppler and Color Flow revealed mild mitral regurgitation. Doppler and Color Flow revealed trace to mild tricuspid regurgitation. The PA pressure was estimated at 23 mmHg. additional history includes: reported degenerative disc disease and nerve impingement both cervical and lumbar sciatica hypertension chronic headaches atrial fibrillation, paroxysmal peptic ulcer arthritis Past Surgical History right elbow surgery pacemaker placement Family History CAD, lung cancer Social History + smoker, no significant ETOH, no illicit drugs Current Medications Current Medications Sodium Chloride 1,000 ml @ 100 mls/hr Q10H IV Last administered on 06/05/18at 01:01; Start 06/05/18 at 01:00; Stop 06/05/18 at 10:59 Morphine Sulfate (Morphine 4mg Syringe) 4 mg 1X ONCE IV Last administered on 06/05/18at 01:01; Start 06/05/18 at 01:00; Stop 06/05/18 at 01:01; Status DC Ondansetron HCl (Zofran) 4 mg 1X ONCE IV Last administered on 06/05/18at 01:00 ; Start 06/05/18 at 01:00; Stop 06/05/18 at 01:01; Status DC Morphine Sulfate (Morphine 4mg Syringe) 4 mg 1X ONCE IV Last administered on 06/05/18at 02:55; Start 06/05/18 at 02:15; Stop 06/05/18 at 02:17; Status DC Metoclopramide HCl (Reglan Vial) 10 mg 1X ONCE IV Last administered on at 02:55; Start 06/05/18 at 02:15; Stop 06/05/18 at 02:17; Status DC Ondansetron HCl (Zofran) 4 mg PRN Q4HRS PRN IV NAUSEA/VOMITING; Start at 02:00; Stop 06/06/18 at 01:59 Morphine Sulfate (Morphine 4mg Syringe) 4 mg PRN Q2HR PRN IV PAIN; Start 06/05 at 02:00; Stop 06/06/18 at 01:59 Sodium Chloride 1,000 ml @ 100 mls/hr Q10H IV ; Start 06/05/18 at 01:59; Stop 06/06/18 at 01:58 Aspirin (Aspirin Enteric Coated) 325 mg DAILY PO Last administered on at 08:22; Start 06/05/18 at 09:00 Metoprolol Tartrate (Lopressor) 25 mg BID PO Last administered on 06/05/18at 08 :22; Start 06/05/18 at 09:00 Oxycodone/ Acetaminophen (Percocet 7.5/ 325) 1 tab PRN BID PRN PO PAIN Last administered on 06/05/18at 08:22; Start 06/05/18 at 06:15 Hydrochlorothiazide (Microzide) 12.5 mg DAILY PO Last administered on at 08:21; Start 06/05/18 at 09:00 Flecainide Acetate (Tambocor) 50 mg Q12HR PO Last administered on 06/05/18at 09 :08; Start 06/05/18 at 09:00 Tizanidine HCl (Zanaflex) 4 mg PRN QHS PRN PO MUSCLE SPASMS; Start 06/05/18 at 06:15 Losartan Potassium (Cozaar) 100 mg DAILY PO Last administered on 06/05/18at 08: 21; Start 06/05/18 at 09:00 Active Scripts Active Reported Oxycodon-Acetaminophen 7.5-325 (Oxycodone Hcl/Acetaminophen) 1 Each Tablet 1 Tab PO PRN BID PRN Metoprolol Tartrate 25 Mg Tablet 25 Mg PO BID Tizanidine Hcl (Tizanidine HCl) 4 Mg Tablet 4 Mg PO PRN QHS PRN Flecainide Acetate 50 Mg Tablet 50 Mg PO BID Aspirin Ec (Aspirin) 325 Mg Tablet.dr 325 Mg PO DAILY Benicar Hct 20-12.5 Mg Tablet (Olmesartan/Hydrochlorothiazide) 1 Each Tablet 1 Each PO DAILY Allergies: Coded Allergies: amoxicillin (Verified Allergy, Intermediate, 11/03/16) codeine (Verified Allergy, Intermediate, Swelling, 11/03/16) hydrocodone (Verified Adverse Reaction, Intermediate, Itching, 11/02/16) Review of System as per HPI or negative General: Alert, Oriented X3, Cooperative, No acute distress HEENT: Atraumatic, EOMI, Mucous membr. moist/pink Lungs: Clear to auscultation, Normal air movement Heart: Regular rate, Normal S1, Normal S2, Other (no murmurs, clicks or rubs) Abdomen: Normal bowel sounds, Soft, No tenderness Extremities: No cyanosis, No edema, Normal pulses Neuro: Normal speech, Strength at 5/5 X4 ext Psych/Mental Status: Mental status NL, Mood NL VITALS Vital Signs Date Time Temp Pulse Resp B/P (MAP) Pulse Ox O2 Delivery O2 Flow Rate FiO2 06/05/18 09:08 92 143/90 06/05/18 05:02 97.9 20 94 Room Air Labs Laboratory Tests Test 06/05/18 00:27 06/05/18 00:55 06/05/18 05:00 06/05/18 07:52 White Blood Count 9.7 x10^3/uL (4.0-11.0) Red Blood Count 5.63 x10^6/uL (4.30-5.70) Hemoglobin 17.8 g/dL (13.0-17.5) Hematocrit 50.9 % (39.0-53.0) Mean Corpuscular Volume 90 fL (79-100) Mean Corpuscular Hemoglobin 32 pg (25-35) Mean Corpuscular Hemoglobin Concent 35 g/dL (31-37) Red Cell Distribution Width 13.0 % (11.5-14.5) Platelet Count 321 x10^3/uL (140-400) Neutrophils (%) (Auto) 79 % (31-73) Lymphocytes (%) (Auto) 16 % (24-48) Monocytes (%) (Auto) 4 % (0-9) Eosinophils (%) (Auto) 0 % (0-3) Basophils (%) (Auto) 1 % (0-3) Neutrophils # (Auto) 7.6 x10^3uL (1.8-7.7) Lymphocytes # (Auto) 1.6 x10^3/uL (1.0-4.8) Monocytes # (Auto) 0.3 x10^3/uL (0.0-1.1) Eosinophils # (Auto) 0.0 x10^3/uL (0.0-0.7) Basophils # (Auto) 0.1 x10^3/uL (0.0-0.2) Troponin I Quantitative < 0.017 ng/mL (0-0.055) < 0.017 ng/mL (0-0.055) < 0.017 ng/mL (0-0.055) Prothrombin Time 10.0 SEC (9.4-11.4) Prothromb Time International Ratio 1.0 (0.9-1.1) Sodium Level 138 mmol/L (136-145) Potassium Level 4.1 mmol/L (3.5-5.1) Chloride Level 103 mmol/L (98-107) Carbon Dioxide Level 24 mmol/L (21-32) Anion Gap 11 (6-14) Blood Urea Nitrogen 19 mg/dL (8-26) Creatinine 1.1 mg/dL (0.7-1.3) Estimated GFR (Cockcroft-Gault) 70.0 BUN/Creatinine Ratio 17 (6-20) Glucose Level 206 mg/dL (70-99) Calcium Level 9.1 mg/dL (8.5-10.1) Magnesium Level 2.3 mg/dL (1.8-2.4) Total Bilirubin 0.4 mg/dL (0.2-1.0) Aspartate Amino Transf (AST/SGOT) 29 U/L (15-37) Alanine Aminotransferase (ALT/SGPT) 86 U/L (16-63) Alkaline Phosphatase 116 U/L (46-116) KK-Mle-L-Type Natriuretic Peptide 214 pg/mL (0-124) Total Protein 7.9 g/dL (6.4-8.2) Albumin 3.6 g/dL (3.4-5.0) Albumin/Globulin Ratio 0.8 (1.0-1.7) Images EKG - sinus tachycardia with non specific st/t changes Assessment/Plan 1. Chest pain - RI ruled out. Normal LVEF by cath and echo in October 2016. Normal MPI October 2016. Normal cardiac cath Aug 2017. Most likely secondary to cervical radiculopathy. Dylan negative. no acute ekg changes. 2. hypertension - will resume home benicar and suggest blood pressure check in office in 2 weeks. 3. SSS s/p PPM. Normal device function, thresholds, impedances and sensing. AF burden 3% by last check on May 09. 4. Hyperglycemia - ? secondary to steroid injection. Suggest A1C as outpatient. Per PCP. blood pressure check in office in 2 weeks. keep follow up as scheduled with BYRON Pulido APRN Jun 05, 2018 09:12
--- NOTE | 2018-06-05 11:10 | SSS ---
ADMIT DATE: 06/05/2018 HISTORY OF PRESENT ILLNESS: The patient is a 52-year-old male patient who came to the Emergency Room complaining of chest pain. The pain is mostly midsternal to left chest pain that started about an hour ago. He stated that the pain down the posterior aspect of left arm as well. His pain is about 7/10. He was seen at [facility] with similar complaint and they recommended admission for further evaluation, but as yesterday was his 's birthday, he wanted to spend time with her and therefore he left against medical advice, only to come back again to [facility] with the same complaint. He denied any nausea or vomiting. Denied any diaphoresis. Denied any shortness of breath. He did complain of severe headache that he rates at 9/10 that is chronic. He has severe degenerative disk disease of both cervical and thoracic and lumbar spine for which he was evaluated by neurosurgical team and he was referred to pain management and to start receiving spinal epidural steroid injection. He was evaluated in the Emergency Room and has had an EKG showed that he was in mild sinus tachycardia with a heart rate of 102 with no evidence of any ST-T changes. His first set of cardiac enzyme was less than 0.017 and was admitted and has 2 more sets of cardiac enzymes, both were normal at less than 0.017. It transpired that he has had cardiac catheterization done in 08/2017, which showed no significant coronary artery disease. He did have also a stress test, which was also showed normal perfusion and echocardiogram showed his left ventricular size is normal with normal systolic function, ejection fraction 55-60%. There is no significant aortic valvular stenosis, no significant aortic regurgitation, mild mitral regurgitation, mild tricuspid regurgitation. His pulmonary artery pressure was estimated at 23 mmHg. He was seen in consultation by the Cardiology team and they recommended the patient can be discharged as he has had a normal cardiac catheterization in 08/2017, normal left ventricular ejection fraction by catheterization, echocardiogram in 10/2016 and has 3 sets of cardiac enzymes that were negative. EKG was normal. The only abnormality was noted is that his blood glucose was high and was 206. We checked it again this morning and it was 254 indicating that he probably has diabetes as he has a strong family history of diabetes. I recommended that he follows with his primary care physician to check his blood sugar and I will start him on metformin XR to be adjusted by his primary care physician. He did receive steroids only 2 days ago. This might obviously be contributing to his abnormal blood glucose. PHYSICAL EXAMINATION: GENERAL: When I saw him this morning, he was sitting on the edge of the bed, in no apparent respiratory distress. No pallor, jaundice, cyanosis, or thyromegaly. No jugular venous distension. No lower limb edema. VITAL SIGNS: His heart rate was 92, blood pressure 143/90, temperature was 97.9, respiratory rate was 20, and oxygen saturation was 94% on room air. HEAD, EYES, EARS, NOSE, AND THROAT: Showed normocephalic, atraumatic. NECK: Supple. HEART: Showed normal first and second heart sounds. No gallop, rub, or murmur. CHEST: Clear to auscultation. No crepitation or rhonchi. ABDOMEN: Distended, soft, nontender. No guarding or rigidity. No organomegaly. All hernial orifice intact. Bowel sounds normal. NEUROLOGIC: He was awake, alert, responding appropriately. All cranial nerves intact. He moves extremities without difficulty. He ambulates without assistance or assistive devices. LABORATORY DATA: His lab work this morning showed a white cell count 9700, hemoglobin 17.8, hematocrit 50.9, MCV 90, and platelet count of 321,000. His chemistry showed a serum sodium 138, potassium 4.1, chloride 103, bicarbonate 24, anion gap 11, BUN 19, creatinine 1.1, estimated GFR was 70, blood glucose was 206. Calcium was 9.1, magnesium 2.3. Total bilirubin, AST, ALT, alkaline phosphatase were normal. His total protein was 7.9, albumin 3.6. His prothrombin time and INR are within normal limits. DISCHARGE MEDICATIONS: He will be discharged to continue on aspirin 325 mg once a day, flecainide 50 mg twice a day, metoprolol tartrate 25 mg twice a day, olmesartan/hydrochlorothiazide 20/12.5 mg once a day, oxycodone/APAP 7.5/325 one tablet twice a day, and tizanidine 4 mg at bedtime. FINAL DISCHARGE DIAGNOSES: Atypical chest pain, myocardial infarction ruled out. He has severe degenerative disk disease for which he received spinal epidural steroid injection, hypertension, atrial fibrillation, probably new onset type 2 diabetes. The patient will be discharged with a prescription for glucometer, glucose test strips, and Glucophage XR to follow with his primary care physician. SUGAR GARRETT MD DR: LOYDA/mabel JOB#: [id number] / [id number]
== END 2018-06-05 11:01 | disposition home or self-care (01) ==
LOC: ER 00:15 → 1 SOUTH 02:00 → INTOOBSV 02:00
PROVIDERS: ADMIT Internal Medicine; ATTEND Internal Medicine
DX: R07.89 Other chest pain (principal); E11.9 Type 2 diabetes mellitus without complications; F17.200 Nicotine dependence, unspecified, uncomplicated; I10 Essential (primary) hypertension; I34.0 Nonrheumatic mitral (valve) insufficiency; I48.0 Paroxysmal atrial fibrillation; I49.5 Sick sinus syndrome; M50.10 Cervical disc disorder with radiculopathy, unspecified cervical region; Z80.1 Family history of malignant neoplasm of trachea, bronchus and lung; Z82.49 Family history of ischemic heart disease and other diseases of the circulatory system; Z83.3 Family history of diabetes mellitus; Z87.11 Personal history of peptic ulcer disease; Z95.0 Presence of cardiac pacemaker
CPT/HCPCS: 36415; 80053; 80061; 82947; 83735; 83880; 84484; 85025; 85610; 93005; 96374; 96375; 96376; 99285; G0378; J2270; J2405; J2765; G0379; J7030

== ENCOUNTER 2018-10-18 06:43 | Observation (INO) | payer BC ==
[~2018-10-18] VITALS: Ht 175.3 cm; Wt 101.0 kg
[~2018-10-18 06:43] MED LIST changes: +ASPI325T11 PO; +FLEC50TA PO; +METO25TA4 PO; +OXYC1TAB8 PO; +TIZA4TAB PO
--- NOTE | 2018-10-18 07:08 | PHYS DOC ---
Past History Past Medical History: A-Fib, CAD, Hypertension Past Surgical History: Cholecystectomy, Pacemaker, Other Additional Past Surgical Histo: right elbow and right wrist Smoking: Quit Greater Than 1 Year Alcohol Use: None Drug Use: None Adult General Chief Complaint Chief Complaint: CHEST PAIN [facility] HPI Patient is a 52-year-old male who presents with chest pain that started at 5 AM today. There is radiation to bilateral shoulders and arms. No worsening with exertion. No respirophasic component. Patient has a mild cough, and had one episode of vomiting approximately 20 minutes prior to arrival. Patient reports soaking his shirt with sweat since the pain started. For the last 4 days patient has had a headache, not worst headache of life. Patient has a history of a pacemaker due to bradycardia and not responsive to medication. Patient reports taking aspirin this morning after the onset of the chest discomfort.[] Review of Systems Review of Systems Constitutional: Denies fever or chills [] Eyes: Denies change in visual acuity, redness, or eye pain [] HENT: Denies nasal congestion or sore throat [] Respiratory: Denies cough or shortness of breath [] Cardiovascular: No additional information not addressed in HPI [] GI: Denies abdominal pain, nausea, vomiting, bloody stools or diarrhea [] : Denies dysuria or hematuria [] Musculoskeletal: Denies back pain or joint pain [] Integument: Denies rash or skin lesions [] Neurologic: Denies focal weakness or sensory changes [] Endocrine: Denies polyuria or polydipsia [] All other systems were reviewed and found to be within normal limits, except as documented in this note. Allergies Allergies Allergies Coded Allergies Type Severity Reaction Last Updated Verified amoxicillin Allergy Intermediate 10/18/18 Yes codeine Allergy Intermediate Swelling 10/18/18 Yes hydrocodone Adverse Reaction Intermediate Itching 11/02/16 Yes Physical Exam Physical Exam Constitutional: Well developed, well nourished, mild discomfort, non-toxic appearance. [] HENT: Normocephalic, atraumatic, bilateral external ears normal, oropharynx moist, no oral exudates, nose normal. [] Eyes: PERRLA, EOMI, conjunctiva normal, no discharge. [] Neck: Normal range of motion, no tenderness, supple, no stridor. [] Cardiovascular:Heart rate regular rhythm, no murmur [] Lungs & Thorax: Bilateral breath sounds clear to auscultation [] Abdomen: Bowel sounds normal, soft, no tenderness, no masses, no pulsatile masses. [] Skin: Warm, dry, no erythema, no rash. [] Back: No tenderness, no CVA tenderness. [] Extremities: No tenderness, no cyanosis, no clubbing, ROM intact, no edema. [] Neurologic: Alert and oriented X 3, normal motor function, normal sensory function, no focal deficits noted. [] Psychologic: Affect normal, judgement normal, mood normal. [] Current Patient Data Vital Signs Vital Signs Date Time Temp Pulse Resp B/P (MAP) Pulse Ox O2 Delivery O2 Flow Rate FiO2 10/18/18 06:55 97.8 82 18 96 Room Air EKG EKG EKG shows an irregular rhythm, rate of 89 bpm, occasional PVCs, QTC of 452 ms, no ST elevations. Interpreted by me at 7 AM[] Radiology/Procedures Radiology/Procedures Portable chest, 10/18/2018: HISTORY: Chest pain, tremors, sweating Comparison is made to a study from 02/06/2017. A left-sided transvenous pacemaker is now in place with 2 leads extending into the right heart. The heart size and pulmonary vascularity are normal. No pulmonary infiltrate is seen. There is no evidence of pleural fluid. IMPRESSION: No acute cardiopulmonary abnormality is detected.[] Course & Med Decision Making Course & Med Decision Making Pertinent Labs and Imaging studies reviewed. (See chart for details) ED course: Patient arrived, was placed in bed, and tolerated exam well. Patient had already taken aspirin prior to arrival so additional aspirin was not administered. He was given narcotic pain medicine which did improve his discomfort. Due to his history of cardiac disease, consultation was made with the hospitalist for admission and further evaluation. He graciously accepted the patient. Findings were discussed with the patient and family who voiced understanding. All questions were answered. Patient was admitted in improved condition. Medical decision making: There is no evidence of a STEMI. No pneumothorax, no pneumonia, no thoracic aneurysm dissection, no esophageal rupture.[] Dragon Disclaimer Dragon Disclaimer This electronic medical record was generated, in whole or in part, using a voice recognition dictation system. Departure Departure: Impression: Primary Impression: Atypical chest pain Disposition: ADMITTED INPATIENT Admitting Physician: Marty, Ahmed Condition: IMPROVED Referrals: SARA,NAVARRO M PA (PCP) FERNANDO DUMONT DO Oct 18, 2018 07:08
[2018-10-18] MEDS ORDERED: ONDANSETRON PF 4 MG/2 ML VIAL. IV ONE (07:30)
--- NOTE | 2018-10-18 07:39 | RAD ---
Portable chest, 10/18/2018: HISTORY: Chest pain, tremors, sweating Comparison is made to a study from 02/06/2017. A left-sided transvenous pacemaker is now in place with 2 leads extending into the right heart. The heart size and pulmonary vascularity are normal. No pulmonary infiltrate is seen. There is no evidence of pleural fluid. IMPRESSION: No acute cardiopulmonary abnormality is detected. Electronically signed by: Baljinder Manzo MD (10/18/2018 7:36 AM) [facility]
[2018-10-18 07:50] LABS: BASO # 0.1 x10^3/uL (0.0-0.2); BASO % 1 % (0-3); EOS # 0.1 x10^3/uL (0.0-0.7); EOS % 1 % (0-3); HEMATOCRIT 50.3 % (39.0-53.0); HEMOGLOBIN 17.5 g/dL (13.0-17.5); LYMPH # 4.1 x10^3/uL (1.0-4.8); LYMPH % 47 % (24-48); MEAN CORPUSCULAR HEMOGLOBIN 32 pg (25-35); MEAN CORPUSCULAR HGB CONC 35 g/dL (31-37); MEAN CORPUSCULAR VOLUME 91 fL (79-100); MONO # 0.8 x10^3/uL (0.0-1.1); MONO % 9 % (0-9); NEUT # 3.8 x10^3uL (1.8-7.7); NEUT % 43 % (31-73); PLATELET COUNT 232 x10^3/uL (140-400); RED BLOOD COUNT 5.51 x10^6/uL (4.30-5.70); RED CELL DISTRIBUTION WIDTH 12.8 % (11.5-14.5); WHITE BLOOD COUNT 8.8 x10^3/uL (4.0-11.0)
[2018-10-18 07:59] LABS: INFLUENZA A PATIENT NEGATIVE (NEGATIVE); INFLUENZA B PATIENT NEGATIVE (NEGATIVE)
[2018-10-18 08:09] LABS: ALBUMIN 3.7 g/dL (3.4-5.0); CALCIUM 9.4 mg/dL (8.5-10.1); CREATININE 1.1 mg/dL (0.7-1.3); POTASSIUM 4.1 mmol/L (3.5-5.1); TOTAL BILIRUBIN 0.7 mg/dL (0.2-1.0); TOTAL PROTEIN 7.4 g/dL (6.4-8.2)
[2018-10-18 08:30] LABS: AMPHETAMINE/METHAMPHETAMINE NEG (NEG); BARBITURATES NEG (NEG); BENZODIAZEPINES NEG (NEG); CANNABINOIDS NEG (NEG); COCAINE NEG (NEG); METHADONE NEG (NEG); OPIATES NEG (NEG); PHENCYCLIDINE NEG (NEG)
[2018-10-18] MEDS ORDERED: ACETAMINOPHEN 325 MG TABLET PO PRN (09:00)
[2018-10-18] MEDS ORDERED: NITROGLYCERIN SUBLINGUAL 0.4 MG BOTTLE OF 25. SL PRN (09:00)
[2018-10-18] MEDS ORDERED: ONDANSETRON PF 4 MG/2 ML VIAL. IV PRN (09:00)
--- NOTE | 2018-10-18 09:18 | EKG ---
[address] [address] Test Date: 2018-10-18 Test Time: 07:00:35 Pat Name: XOCHITL NGO Department: Room: 105 A Gender: M [employer] Model: : 1965 Requested By: FERNANDO DUMONT Order Number: [id number] Reading MD: Anthony Moore MD Measurements Intervals [place] Rate: 89 P: CO: QRS: -18 QRSD: 108 T: 1 QT: 366 QTc: 452 Interpretive Statements PROBABLE SR PVC'S CANNOT RULE OUT AFIB, CONSIDER REPEAT EKG Electronically Signed On 10-21-2018 22:02:54 CDT by Anthony Moore MD
--- NOTE | 2018-10-18 09:21 | PDOC2 ---
CONSULT Date of Admission DATE: 10/18/18 TIME: 09:20 Reason for Consult: atrial fib with RVR and non sustained Vtach, chest pain Problem List Problems Medical Problems: (1) Atypical chest pain Status: Acute History of Present Illness Mr Morel is a 52 year old male with history of sick sinus syndrome, paroxysmal atrial fibrillation and permanent pacemaker placement well known to our practice. He underwent echocardiogram which revealed normal LV function in October of last year and reportedly had repeat last month but report is unavailable for review. MPI which revealed normal perfusion in October of last year and in Aug of last year cardiac catheterization which revealed normal coronaries and LV function. He presents with complaints of chest pain which started around 5 am. He describes sharp stabbing pain which radiates to both arms, non exertional but does change with position. He also reports headache for the last 4 days. He does have history of C spine disease which is reportedly non surgical. He denies dyspnea or congestive symptoms but does report snoring and waking up gasping on occasion and his reports episodes of witnessed apnea. Past Medical History cath, Aug 2017 no significant coronary disease EF 55% MPI 11/02/16 normal perfusion echo 10/2016 The left ventricle is normal size. Left ventricle systolic function is normal. The Ejection Fraction is 55-60%. There is no significant aortic valvular stenosis. Doppler and Color Flow revealed no significant aortic regurgitation. Doppler and Color Flow revealed mild mitral regurgitation. Doppler and Color Flow revealed trace to mild tricuspid regurgitation. The PA pressure was estimated at 23 mmHg. additional history includes: reported degenerative disc disease and nerve impingement both cervical and lumbar sciatica hypertension chronic headaches atrial fibrillation, paroxysmal peptic ulcer arthritis Past Surgical History right elbow surgery pacemaker placement Family History CAD, lung cancer Social History + smoker, no significant ETOH, no illicit drugs Current Medications Current Medications Fentanyl Citrate (Fentanyl 2ml Vial) 50 mcg 1X ONCE IV Last administered on at 07:17; Start 10/18/18 at 07:30; Stop 10/18/18 at 07:31; Status DC Ondansetron HCl (Zofran) 4 mg 1X ONCE IV Last administered on 10/18/18at 07:17 ; Start 10/18/18 at 07:30; Stop 10/18/18 at 07:31; Status DC Fentanyl Citrate (Fentanyl 2ml Vial) 50 mcg 1X ONCE IV Last administered on at 08:38; Start 10/18/18 at 08:45; Stop 10/18/18 at 08:46; Status DC Ondansetron HCl (Zofran) 4 mg PRN Q4HRS PRN IV NAUSEA/VOMITING; Start 10/18/18 at 09:00; Stop 10/19/18 at 08:59 Fentanyl Citrate (Fentanyl 2ml Vial) 50 mcg PRN Q2HR PRN IV PAIN; Start at 09:00; Stop 10/19/18 at 08:59 Sodium Chloride 1,000 ml @ 125 mls/hr Q8H IV ; Start 10/18/18 at 08:46; Stop at 08:45 Acetaminophen (Tylenol) 650 mg PRN Q4HRS PRN PO FEVER; Start 10/18/18 at 09:00 ; Stop 10/19/18 at 08:59 Nitroglycerin (Nitrostat) 0.4 mg PRN Q5MIN PRN SL CHEST PAIN; Start 10/18/18 at 09:00; Stop 10/19/18 at 08:59 Active Scripts Active Reported Oxycodon-Acetaminophen 7.5-325 (Oxycodone Hcl/Acetaminophen) 1 Each Tablet 1 Tab PO PRN BID PRN Metoprolol Tartrate 25 Mg Tablet 25 Mg PO BID Tizanidine Hcl (Tizanidine HCl) 4 Mg Tablet 4 Mg PO PRN QHS PRN Flecainide Acetate 50 Mg Tablet 50 Mg PO BID Aspirin Ec (Aspirin) 325 Mg Tablet.dr 325 Mg PO DAILY Benicar Hct 20-12.5 Mg Tablet (Olmesartan/Hydrochlorothiazide) 1 Each Tablet 1 Each PO DAILY Allergies: Coded Allergies: amoxicillin (Verified Allergy, Intermediate, 10/18/18) Review of System as per hpi or negative General: Alert, Oriented X3, Cooperative, No acute distress Lungs: Clear to auscultation, Normal air movement Heart: Normal S1, Normal S2, Other (no gallops, clicks or rubs) Abdomen: Normal bowel sounds, Soft, No tenderness Extremities: No cyanosis, No edema, Normal pulses Neuro: Normal speech, Strength at 5/5 X4 ext Psych/Mental Status: Mental status NL, Mood NL VITALS Vital Signs Date Time Temp Pulse Resp B/P (MAP) Pulse Ox O2 Delivery O2 Flow Rate FiO2 10/18/18 08:55 86 18 117/90 (99) 94 Room Air 10/18/18 07:55 95.0 10/18/18 06:55 97.8 Labs Laboratory Tests Test 10/18/18 06:55 10/18/18 07:20 10/18/18 07:57 10/18/18 08:10 White Blood Count 8.8 x10^3/uL (4.0-11.0) Red Blood Count 5.51 x10^6/uL (4.30-5.70) Hemoglobin 17.5 g/dL (13.0-17.5) Hematocrit 50.3 % (39.0-53.0) Mean Corpuscular Volume 91 fL (79-100) Mean Corpuscular Hemoglobin 32 pg (25-35) Mean Corpuscular Hemoglobin Concent 35 g/dL (31-37) Red Cell Distribution Width 12.8 % (11.5-14.5) Platelet Count 232 x10^3/uL (140-400) Neutrophils (%) (Auto) 43 % (31-73) Lymphocytes (%) (Auto) 47 % (24-48) Monocytes (%) (Auto) 9 % (0-9) Eosinophils (%) (Auto) 1 % (0-3) Basophils (%) (Auto) 1 % (0-3) Neutrophils # (Auto) 3.8 x10^3uL (1.8-7.7) Lymphocytes # (Auto) 4.1 x10^3/uL (1.0-4.8) Monocytes # (Auto) 0.8 x10^3/uL (0.0-1.1) Eosinophils # (Auto) 0.1 x10^3/uL (0.0-0.7) Basophils # (Auto) 0.1 x10^3/uL (0.0-0.2) Sodium Level 142 mmol/L (136-145) Potassium Level 4.1 mmol/L (3.5-5.1) Chloride Level 106 mmol/L (98-107) Carbon Dioxide Level 25 mmol/L (21-32) Anion Gap 11 (6-14) Blood Urea Nitrogen 19 mg/dL (8-26) Creatinine 1.1 mg/dL (0.7-1.3) Estimated GFR (Cockcroft-Gault) 70.0 BUN/Creatinine Ratio 17 (6-20) Glucose Level 104 mg/dL (70-99) Calcium Level 9.4 mg/dL (8.5-10.1) Magnesium Level 2.0 mg/dL (1.8-2.4) Total Bilirubin 0.7 mg/dL (0.2-1.0) Aspartate Amino Transf (AST/SGOT) 50 U/L (15-37) Alanine Aminotransferase (ALT/SGPT) 111 U/L (16-63) Alkaline Phosphatase 98 U/L (46-116) Troponin I Quantitative < 0.017 ng/mL (0-0.055) LS-Fzs-L-Type Natriuretic Peptide 124 pg/mL (0-124) Total Protein 7.4 g/dL (6.4-8.2) Albumin 3.7 g/dL (3.4-5.0) Albumin/Globulin Ratio 1.0 (1.0-1.7) Lipase 124 U/L (73-393) Influenza Type A (Rapid) Negative (NEGATIVE) Influenza Type B (Rapid) Negative (NEGATIVE) Prothrombin Time 10.2 SEC (9.4-11.4) Prothromb Time International Ratio 1.0 (0.9-1.1) Urine Opiates Screen Neg (NEG) Urine Methadone Screen Neg (NEG) Urine Barbiturates Neg (NEG) Urine Phencyclidine Screen Neg (NEG) Urine Amphetamine/Methamphetamine Neg (NEG) Urine Benzodiazepines Screen Neg (NEG) Urine Cocaine Screen Neg (NEG) Urine Cannabinoids Screen Neg (NEG) Urine Ethyl Alcohol Neg (NEG) Images EKG - atria fib with intermittent V pacing Tele strips consistent with v pacing, no VT Assessment/Plan 1. Chest pain consistent with cervical radiculopathy - negative CEx1, normal cardiac cath last Aug. Will request recent echo for review. 2. atrial fib with RVR - currently rate controlled. Device check for burden 3. VT - ecg strips consistent with V pacing but will review device interrogation for any Ventricular arrhythmias 4. hypertension - resume home meds 5. probable sleep apnea - refer to Dr Chaudhry for home sleep study and CPAP if indicated. 6. sss s/p PPM - device interrogation and advised to re-plug in home monitor. tobaccoism - encourage cessation BYRON CHEATHAM APRN Oct 18, 2018 09:21
[2018-10-18 09:50] VITALS: BP 127/89
[2018-10-18] MEDS ORDERED: KETOROLAC 30 MG/ML VIAL. IV PRN (10:00)
[2018-10-18] MEDS ORDERED: tiZANidine 4 MG TABLET. PO PRN (10:00)
[2018-10-18] MEDS ORDERED: UBID50CA PO (10:08)
[2018-10-18] MEDS ORDERED: HYDR-52 PO (10:08)
--- NOTE | 2018-10-18 10:30 | NUR ---
PT is able to verbalize understanding of poc and orientation to unit. Pt has a neck injury and has had a headache for 4 days. Pt started to have CP today so came to ed. Laura Goodman was present on pt arrival to unit. PT is in SR with paced rhythm. Pace maker will be interrogated and echo today. Pain management at this time. Pt had a clean cath last year. Fidencio FRANCIS
[2018-10-18] MEDS: oxyCODONE/APAP 10/325 1 TAB TABLET PO PRN ×2 (10:52→22:28)
[2018-10-18] MEDS: IV NORMAL SALINE 1,000ML 1,000 ML IV SCH ×3 (10:55→22:26)
[2018-10-18 12:26] VITALS: BP 114/81
[2018-10-18 15:01] VITALS: BP 99/64
--- NOTE | 2018-10-18 17:20 | HP ---
ADMIT DATE: 10/18/2018 HISTORY OF PRESENT ILLNESS: The patient is a 52-year-old male patient, who apparently came to the Emergency Room this morning complaining of chest pain that started around 5:00 in the morning. The pain has radiated to bilateral shoulders and arms. No worsening with exertion. He claimed it was 9/10 in severity, associated with shortness of breath and diaphoresis and one episode of vomiting approximately 20 minutes prior to arrival. He actually reports soaking his shirt with sweat since the pain started. For the last 4 days, he also had severe headache, not the worst headache of his life. He was extensively investigated in the Emergency Room. The first set of cardiac enzyme was less than 0.017. He apparently has a pacemaker and that was interrogated and was found to be in atrial fibrillation since 4:00 this morning, although the rate is controlled. He was admitted to do 2 more sets of cardiac enzyme and to consult the cardiology team. PAST MEDICAL HISTORY: Significant for atrial fibrillation, degenerative disk disease of cervical and lumbar spine. He has a cervical radiculopathy with cervical degenerative disk disease and cervical spine stenosis and lumbar radiculopathy with lumbar degenerative disk disease. He has hypertension, nephrolithiasis x 2. Has a history of heat stroke. PAST SURGICAL HISTORY: Significant for right elbow fracture, status post open reduction and internal fixation, right wrist fracture, status post open reduction and internal fixation. He also had pacemaker placement. He has also had spinal steroid epidural injection multiple times. ALLERGIES: HE IS ALLERGIC TO AMOXICILLIN AND CODEINE. MEDICATIONS: He is currently on following medications: He is on tizanidine 4 mg as needed at bedtime, flecainide 50 mg twice a day, metoprolol tartrate 25 mg twice a day, olmesartan/hydrochlorothiazide 20/12.5 mg once a day, aspirin 325 mg once a day, hydrocodone/APAP 10/325 two tablets every 4 hours, oxycodone/APAP 7.5/325 one tablet twice a day. He is on Coenzyme Q10 50 mg p.o. daily. FAMILY HISTORY: He has 3 sisters, 2 older and one of them has COPD and diabetes, the other one is seemingly healthy. His younger sister is healthy. Mother at the age of 60 because of lung cancer. He never met his father. SOCIAL HISTORY: He is , has 1 son and 6 girls. He quit smoking in the year 1999. Quit alcohol in 2013. Does not use drugs. Currently unemployed. REVIEW OF SYSTEMS: The patient denied any blurring of vision, cataract, glaucoma or macular degeneration. Denied any earache, tinnitus or sensorineural deafness. Denied any nosebleeds, stuffy nose or postnasal drip. Denied any sore throat, sore tongue, toothache, hoarseness of voice or difficulty swallowing. Did complain of nausea, vomiting prior to arrival to the Emergency Room yesterday has 2 episodes of diarrhea. According to him, he denied any hematemesis, melena or hematochezia. Denied any dysuria, frequency or hematuria. Did complain of chest pain that he rated as 9/10 in severity, has lasted from 5-8 o'clock in the morning and it was associated with shortness of breath, diaphoresis and the pain was radiating to both shoulders and his neck. Denied any dizziness, lightheadedness, or vertigo. Denied any chills, rigors or fever. PHYSICAL EXAMINATION: GENERAL: On arrival to the Emergency Room, the patient looked well and was clearly in no apparent respiratory distress. No pallor, jaundice, cyanosis, or thyromegaly. No jugular venous distension. No lower limb edema. VITAL SIGNS: His heart rate was 82, blood pressure was 136/108, temperature was 97.8, respiratory rate was 18 and oxygen saturation was 96%. HEAD, EYES, EARS, NOSE AND THROAT: Showed normocephalic, atraumatic. NECK: Supple. HEART: Showed normal first and second heart sounds with no gallop, rub or murmur. CHEST: Clear to auscultation. No crepitation or rhonchi. ABDOMEN: Distended, soft, nontender. No guarding or rigidity. No organomegaly. All hernial orifices are intact. Bowel sounds normal. NEUROLOGIC: He was awake, alert, responding appropriately. All cranial nerves intact. EXTREMITIES: He moves extremities without difficulty. He ambulates without assistance or assistive devices. LABORATORY DATA: On admission showed a white cell count of 8800, hemoglobin 17.5, hematocrit 50, MCV 91, and platelet count 232,000 with a manual differential showed 43% polymorphs, 47% lymphocytes, 9% monocytes. Serum sodium 142, potassium 4.1, chloride 106, bicarbonate 25, anion gap of 11, BUN 19, creatinine 1.1, estimated GFR was 70 mL per minute. His glucose 104, calcium was 9.4, magnesium 2. Total bilirubin and alkaline phosphatase is normal. AST, ALT slightly elevated. His first set of troponin was less than 0.017. Beta-natriuretic peptide is 124. Total protein was 7.4, albumin 3.7, lipase 124. TSH was 1.673. His prothrombin time was 10.2, INR of 1. His tox screen was essentially negative and his influenza A and B were negative. Apparently, his pacemaker was interrogated and was found to be in atrial fibrillation, although rate controlled since 4:00 this morning according to nursing staff. The shoe laster recommended increasing his flecainide to 100 mg twice a day. We will continue with all his medication and we will arrange for him to have a CT scan of the head and also cervical spine and decide the further management accordingly. SUGAR GARRETT MD DR: LOYDA/mabel JOB#: [id number] / [id number]
[2018-10-18] MEDS ORDERED: fentaNYL 50MCG/HR 1 PATCH PATCH TD SCH (17:45)
[2018-10-18] MEDS ORDERED: FLECAINIDE 50 MG TABLET. PO SCH (18:00)
[2018-10-18] MEDS: METOPROLOL TART IMMED RELEASE 25 MG TABLET PO SCH (18:18)
[2018-10-18] MEDS: FLECAINIDE 50 MG TABLET. PO SCH (18:18)
[2018-10-18 18:21] VITALS: BP 118/75
[2018-10-18 19:00] VITALS: BP 115/74
[2018-10-18 22:30] VITALS: BP 150/97
[2018-10-19 05:43] VITALS: BP 144/97
[2018-10-19 06:29] LABS: BASO % 1 % (0-3); EOS # 0.1 x10^3/uL (0.0-0.7); EOS % 2 % (0-3); HEMATOCRIT 45.7 % (39.0-53.0); LYMPH # 2.7 x10^3/uL (1.0-4.8); LYMPH % 40 % (24-48); MEAN CORPUSCULAR HEMOGLOBIN 33 pg (25-35); MEAN CORPUSCULAR HGB CONC 35 g/dL (31-37); MEAN CORPUSCULAR VOLUME 93 fL (79-100); MONO # 0.6 x10^3/uL (0.0-1.1); MONO % 9 % (0-9); NEUT # 3.3 x10^3uL (1.8-7.7); NEUT % 49 % (31-73); PLATELET COUNT 187 x10^3/uL (140-400); RED CELL DISTRIBUTION WIDTH 13.1 % (11.5-14.5); WHITE BLOOD COUNT 6.6 x10^3/uL (4.0-11.0)
[2018-10-19 06:46] LABS: ALBUMIN 3.4 g/dL (3.4-5.0); CALCIUM 8.5 mg/dL (8.5-10.1); CREATININE 1.2 mg/dL (0.7-1.3); GFR 63.3; POTASSIUM 3.8 mmol/L (3.5-5.1); TOTAL BILIRUBIN 0.4 mg/dL (0.2-1.0); TOTAL PROTEIN 6.9 g/dL (6.4-8.2)
[2018-10-19] MEDS: METOPROLOL TART IMMED RELEASE 25 MG TABLET PO SCH (07:36)
[2018-10-19] MEDS: FLECAINIDE 50 MG TABLET. PO SCH (07:36)
[2018-10-19] MEDS: oxyCODONE/APAP 10/325 1 TAB TABLET PO PRN (07:36)
--- NOTE | 2018-10-19 07:56 | RAD ---
CT of the head without contrast, 10/18/2018: HISTORY: Headache and neck pain, blurry vision The ventricles are within normal limits in size. There is no shift of the midline structures. There is no evidence of acute intracranial hemorrhage or mass effect. IMPRESSION: No acute intracranial abnormality is detected. CT of the cervical spine without contrast, 10/18/2018: Noncontrast scans were obtained with multiplanar reconstructions produced. No fracture or dislocation is identified. There is moderate disc space narrowing and marginal spurring, most severe at C4-5, C5-6 and C6-7. There are moderate hypertrophic degenerative changes involving multiple facet joints bilaterally. The posterior disc margins are not clearly visible. The combination of findings is causing moderate central spinal stenosis at C4-5, C5-6 and C6-7 as well as moderate foraminal stenosis bilaterally at these levels. The paraspinous soft tissues are unremarkable. IMPRESSION: 1. Moderate multilevel degenerative change in the cervical spine with associated central spinal and bilateral foraminal stenosis at C4-5, C5-6 and C6-7. 2. No acute bony abnormality is detected. PQRS Compliance Statement: One or more of the following individualized dose reduction techniques were utilized for this examination: 1. Automated exposure control 2. Adjustment of the mA and/or kV according to patient size 3. Use of iterative reconstruction technique Electronically signed by: Baljinder Manzo MD (10/19/2018 7:53 AM) [facility]
--- NOTE | 2018-10-19 08:00 | NUR ---
Pt is able to verbalize understanding of poc. PT hopes to go home today. Cardio recommends to follow up with DR Chaudhry outpatient for sleep apnea study. PT pain is more under control today with addition of fentanyl patch. Brian FRANCIS
[2018-10-19] MEDS ORDERED: ASPIRIN ENTERIC COATED 325 MG TABLET.DR. PO SCH (09:00)
[2018-10-19] MEDS ORDERED: LOSARTAN 50 MG TABLET. PO SCH (09:00)
[2018-10-19] MEDS ORDERED: UBIDECARENONE 50 MG CAPSULE. PO SCH (09:00)
[2018-10-19] MEDS ORDERED: hydroCHLOROthiazide 12.5 MG CAPSULE PO SCH (09:00)
--- NOTE | 2018-10-19 09:20 | PDOC ---
BYRON CHEATHAM LUBRICATING MACHINE TENDER 10/19/18 0920: PROGRESS NOTES Diagnosis Problem Problems Medical Problems: (1) Atypical chest pain Status: Acute Assessment Problems Medical Problems: (1) Atypical chest pain Status: Acute 1. Chest pain most consistent with radiculopathy. Normal LVEF by cath and echo in October 2016. Normal MPI October 2016. Normal cardiac cath Aug 2017. Dylan negative. 2. paroxysmal atrial fibrillation with 1% burden, increase flecainide and monitor remotely. Device check revealed no VT, only V pacing 3. Degenerative cervical disc disease with bilateral foraminal stenosis at C4-5 , C5-6 and C6-7. Likely culprit for headache and chest pain. mgmt per PCP. 4. hypertension - resume home dosing of antihypertensives (dosing held due to borderline pressures after admin of opiates). Outpatient follow up is scheduled in next 2-3 weeks and will adjust meds if necessary at that time. 5. Sick sinus syndrome s/p ppm - appropriate function. AF burden 1%. Subjective continues to have headache though improved. Intermittent sharp stabbing CP improved. "ready to go home". Objective Vital Signs Date Time Temp Pulse Resp B/P (MAP) Pulse Ox O2 Delivery O2 Flow Rate FiO2 10/19/18 08:07 71 10/19/18 05:43 97.8 18 144/97 (113) 95 Room Air 10/18/18 07:55 95.0 Intake and Output 10/19/18 07:00 Intake Total 1080 ml Balance 1080 ml Intake Oral 1080 ml # Voids 3 Physical Exam gen: awake alert no acute distress CV - reg rate and rhythm Lungs: clear abd: soft nontender, bowel sounds present ext: no edema, pulses palpable Review of Relevant I have reviewed the following items yadira (where applicable) has been applied. Labs Laboratory Tests Test 10/18/18 06:55 10/18/18 07:20 10/18/18 07:57 10/18/18 08:10 White Blood Count 8.8 x10^3/uL (4.0-11.0) Red Blood Count 5.51 x10^6/uL (4.30-5.70) Hemoglobin 17.5 g/dL (13.0-17.5) Hematocrit 50.3 % (39.0-53.0) Mean Corpuscular Volume 91 fL (79-100) Mean Corpuscular Hemoglobin 32 pg (25-35) Mean Corpuscular Hemoglobin Concent 35 g/dL (31-37) Red Cell Distribution Width 12.8 % (11.5-14.5) Platelet Count 232 x10^3/uL (140-400) Neutrophils (%) (Auto) 43 % (31-73) Lymphocytes (%) (Auto) 47 % (24-48) Monocytes (%) (Auto) 9 % (0-9) Eosinophils (%) (Auto) 1 % (0-3) Basophils (%) (Auto) 1 % (0-3) Neutrophils # (Auto) 3.8 x10^3uL (1.8-7.7) Lymphocytes # (Auto) 4.1 x10^3/uL (1.0-4.8) Monocytes # (Auto) 0.8 x10^3/uL (0.0-1.1) Eosinophils # (Auto) 0.1 x10^3/uL (0.0-0.7) Basophils # (Auto) 0.1 x10^3/uL (0.0-0.2) Sodium Level 142 mmol/L (136-145) Potassium Level 4.1 mmol/L (3.5-5.1) Chloride Level 106 mmol/L (98-107) Carbon Dioxide Level 25 mmol/L (21-32) Anion Gap 11 (6-14) Blood Urea Nitrogen 19 mg/dL (8-26) Creatinine 1.1 mg/dL (0.7-1.3) Estimated GFR (Cockcroft-Gault) 70.0 BUN/Creatinine Ratio 17 (6-20) Glucose Level 104 mg/dL (70-99) Calcium Level 9.4 mg/dL (8.5-10.1) Magnesium Level 2.0 mg/dL (1.8-2.4) Total Bilirubin 0.7 mg/dL (0.2-1.0) Aspartate Amino Transf (AST/SGOT) 50 U/L (15-37) Alanine Aminotransferase (ALT/SGPT) 111 U/L (16-63) Alkaline Phosphatase 98 U/L (46-116) Troponin I Quantitative < 0.017 ng/mL (0-0.055) PR-Ulj-O-Type Natriuretic Peptide 124 pg/mL (0-124) Total Protein 7.4 g/dL (6.4-8.2) Albumin 3.7 g/dL (3.4-5.0) Albumin/Globulin Ratio 1.0 (1.0-1.7) Lipase 124 U/L (73-393) Thyroid Stimulating Hormone (TSH) 1.673 uIU/mL (0.358-3.740) Influenza Type A (Rapid) Negative (NEGATIVE) Influenza Type B (Rapid) Negative (NEGATIVE) Prothrombin Time 10.2 SEC (9.4-11.4) Prothromb Time International Ratio 1.0 (0.9-1.1) Urine Opiates Screen Neg (NEG) Urine Methadone Screen Neg (NEG) Urine Barbiturates Neg (NEG) Urine Phencyclidine Screen Neg (NEG) Urine Amphetamine/Methamphetamine Neg (NEG) Urine Benzodiazepines Screen Neg (NEG) Urine Cocaine Screen Neg (NEG) Urine Cannabinoids Screen Neg (NEG) Urine Ethyl Alcohol Neg (NEG) Test 10/18/18 12:58 10/19/18 05:43 Magnesium Level 2.2 mg/dL (1.8-2.4) Troponin I Quantitative < 0.017 ng/mL (0-0.055) < 0.017 ng/mL (0-0.055) White Blood Count 6.6 x10^3/uL (4.0-11.0) Red Blood Count 4.90 x10^6/uL (4.30-5.70) Hemoglobin 16.0 g/dL (13.0-17.5) Hematocrit 45.7 % (39.0-53.0) Mean Corpuscular Volume 93 fL (79-100) Mean Corpuscular Hemoglobin 33 pg (25-35) Mean Corpuscular Hemoglobin Concent 35 g/dL (31-37) Red Cell Distribution Width 13.1 % (11.5-14.5) Platelet Count 187 x10^3/uL (140-400) Neutrophils (%) (Auto) 49 % (31-73) Lymphocytes (%) (Auto) 40 % (24-48) Monocytes (%) (Auto) 9 % (0-9) Eosinophils (%) (Auto) 2 % (0-3) Basophils (%) (Auto) 1 % (0-3) Neutrophils # (Auto) 3.3 x10^3uL (1.8-7.7) Lymphocytes # (Auto) 2.7 x10^3/uL (1.0-4.8) Monocytes # (Auto) 0.6 x10^3/uL (0.0-1.1) Eosinophils # (Auto) 0.1 x10^3/uL (0.0-0.7) Basophils # (Auto) 0.0 x10^3/uL (0.0-0.2) Sodium Level 142 mmol/L (136-145) Potassium Level 3.8 mmol/L (3.5-5.1) Chloride Level 108 mmol/L (98-107) Carbon Dioxide Level 29 mmol/L (21-32) Anion Gap 5 (6-14) Blood Urea Nitrogen 24 mg/dL (8-26) Creatinine 1.2 mg/dL (0.7-1.3) Estimated GFR (Cockcroft-Gault) 63.3 BUN/Creatinine Ratio 20 (6-20) Glucose Level 103 mg/dL (70-99) Calcium Level 8.5 mg/dL (8.5-10.1) Total Bilirubin 0.4 mg/dL (0.2-1.0) Aspartate Amino Transf (AST/SGOT) 41 U/L (15-37) Alanine Aminotransferase (ALT/SGPT) 95 U/L (16-63) Alkaline Phosphatase 92 U/L (46-116) Total Protein 6.9 g/dL (6.4-8.2) Albumin 3.4 g/dL (3.4-5.0) Albumin/Globulin Ratio 1.0 (1.0-1.7) Medications Current Medications Fentanyl Citrate (Fentanyl 2ml Vial) 50 mcg 1X ONCE IV Last administered on at 07:17; Start 10/18/18 at 07:30; Stop 10/18/18 at 07:31; Status DC Ondansetron HCl (Zofran) 4 mg 1X ONCE IV Last administered on 10/18/18at 07:17 ; Start 10/18/18 at 07:30; Stop 10/18/18 at 07:31; Status DC Fentanyl Citrate (Fentanyl 2ml Vial) 50 mcg 1X ONCE IV Last administered on at 08:38; Start 10/18/18 at 08:45; Stop 10/18/18 at 08:46; Status DC Ondansetron HCl (Zofran) 4 mg PRN Q4HRS PRN IV NAUSEA/VOMITING Last administered on 10/18/18at 18:18; Start 10/18/18 at 09:00; Stop 10/19/18 at 08:59 ; Status DC Fentanyl Citrate (Fentanyl 2ml Vial) 50 mcg PRN Q2HR PRN IV PAIN; Start at 09:00; Stop 10/19/18 at 08:59; Status Cancel Sodium Chloride 1,000 ml @ 125 mls/hr Q8H IV Last administered on 10/18/18at 22 :26; Start 10/18/18 at 08:46; Stop 10/19/18 at 08:45; Status DC Acetaminophen (Tylenol) 650 mg PRN Q4HRS PRN PO FEVER; Start 10/18/18 at 09:00 ; Stop 10/19/18 at 08:59; Status DC Nitroglycerin (Nitrostat) 0.4 mg PRN Q5MIN PRN SL CHEST PAIN; Start 10/18/18 at 09:00; Stop 10/19/18 at 08:59; Status DC Ketorolac Tromethamine (Toradol 30mg Vial) 30 mg PRN Q6HRS PRN IV PAIN Last administered on 10/18/18at 10:52; Start 10/18/18 at 10:00; Stop 10/23/18 at 09:59 Aspirin (Aspirin Enteric Coated) 325 mg DAILY PO Last administered on at 08:07; Start 10/19/18 at 09:00 Metoprolol Tartrate (Lopressor) 25 mg [id number] PO Last administered on 10/19/18at 07:36; Start 10/18/18 at 18:00 Coenzyme Q10 (Coenzyme Q10) 50 mg DAILY PO Last administered on 10/19/18at 08:07 ; Start 10/19/18 at 09:00 Flecainide Acetate (Tambocor) 50 mg [id number] PO ; Start 10/18/18 at 18:00; Stop at 18:00; Status DC Losartan Potassium (Cozaar) 100 mg DAILY PO Last administered on 10/19/18at 08: 07; Start 10/19/18 at 09:00 Tizanidine HCl (Zanaflex) 4 mg PRN QHS PRN PO MIGRAINES; Start 10/18/18 at 10: 00 Oxycodone/ Acetaminophen (Percocet 10/325) 2 tab PRN Q6HRS PRN PO PAIN Last administered on 10/19/18at 07:36; Start 10/18/18 at 10:00 Hydrochlorothiazide (Microzide) 12.5 mg DAILY PO Last administered on 08:07; Start 10/19/18 at 09:00 Flecainide Acetate (Tambocor) 100 mg [id number] PO Last administered on 10/19/18 07 :36; Start 10/18/18 at 18:00 Fentanyl Citrate (Fentanyl 2ml Vial) 100 mcg PRN Q2HR PRN IV PAIN Last administered on 10/18/18at 17:41; Start 10/18/18 at 12:45 Fentanyl Citrate (Fentanyl 2ml Vial) 100 mcg STK-MED ONCE .ROUTE ; Start at 12:34; Stop 10/18/18 at 12:35; Status DC Fentanyl (Duragesic 50mcg/ Hr) 1 patch Q3DAYS TD Last administered on at 18:18; Start 10/18/18 at 17:45 Active Scripts Active Reported Coenzyme Q10 (Ubidecarenone) 50 Mg Capsule 50 Mg PO DAILY Hydrocodone-Acetamin 10-325 mg (Hydrocodone/Acetaminophen) 1 Each Tablet 2 Each PO Q6HRS Oxycodon-Acetaminophen 7.5-325 (Oxycodone Hcl/Acetaminophen) 1 Each Tablet 1 Tab PO PRN BID PRN Metoprolol Tartrate 25 Mg Tablet 25 Mg PO [id number] Tizanidine Hcl (Tizanidine HCl) 4 Mg Tablet 4 Mg PO PRN QHS PRN Flecainide Acetate 50 Mg Tablet 50 Mg PO [id number] Aspirin Ec (Aspirin) 325 Mg Tablet.dr 325 Mg PO DAILY Benicar Hct 20-12.5 Mg Tablet (Olmesartan/Hydrochlorothiazide) 1 Each Tablet 1 Each PO DAILY Vitals/I & O Vital Sign - Last 24 Hours 10/18/18 10/18/18 10/18/18 10/18/18 09:50 12:26 12:48 15:01 Temp 97.5 Pulse 81 68 Resp 20 20 B/P (MAP) 127/89 (102) 114/81 (92) 99/64 (76) Pulse Ox 95 95 91 O2 Delivery Room Air Room Air 10/18/18 10/18/18 10/18/18 10/18/18 17:41 18:18 18:18 18:18 Pulse 88 88 Pulse Ox 91 O2 Delivery Room Air 10/18/18 10/18/18 10/18/18 10/18/18 18:21 18:40 19:00 22:30 Temp 97.8 97.5 Pulse 68 80 71 Resp 20 20 20 B/P (MAP) 118/75 (89) 115/74 (88) 150/97 (114) Pulse Ox 92 93 94 O2 Delivery Room Air Room Air Room Air Room Air 10/19/18 10/19/18 10/19/18 10/19/18 05:43 07:36 07:36 08:07 Temp 97.8 Pulse 71 90 90 71 Resp 18 B/P (MAP) 144/97 (113) Pulse Ox 95 O2 Delivery Room Air Intake and Output 10/18/18 10/18/18 10/19/18 15:00 23:00 07:00 Intake Total 240 ml 440 ml 400 ml Balance 240 ml 440 ml 400 ml ALESSANDRA MAC MD 10/19/18 1323: PROGRESS NOTES Review of Relevant Pt. seen and examined. Agree with above FRUIT DUMPER note. Supportive care. BYRON CHEATHAM APRN Oct 19, 2018 09:20 ALESSANDRA MAC MD Oct 19, 2018 13:23
[2018-10-19 10:05] VITALS: BP 147/100
[2018-10-19] MEDS ORDERED: diphenhydrAMINE 50 MG/ML VIAL IVP PRN (13:30)
[2018-10-19] MEDS ORDERED: FENT1PAT17 TP (13:45)
[2018-10-19] MEDS ORDERED: ONDANSETRON PF 4 MG/2 ML VIAL. ONE (13:50)
[2018-10-19] MEDS ORDERED: FLEC100T PO (14:00)
[2018-10-19] MEDS ORDERED: ONDANSETRON PF 4 MG/2 ML VIAL. IV PRN (14:00)
--- NOTE | 2018-10-19 14:00 | NUR ---
PT dc to home Pt and are able to verbalize understanding of discharge instructions and medication changes. PT given fentanyl patches and I went over extensively with patient importance of keeping Patches out of reach of any kids or animals and disguarding patches properly. BGrayRN
--- NOTE | 2018-10-19 15:00 | DS ---
DATE OF DISCHARGE: 10/19/2018 HOSPITAL COURSE: The patient is a 52-year-old male patient, who came to the Emergency Room, complaining of chest pain that radiates to his neck and both shoulders. He is known to have severe degenerative disk disease of the cervical spine for which he was seen before by the neurosurgeon as well as Dr. Tyler Benoit in fact he has given spinal epidural steroid injection. He has had 3 sets of cardiac enzymes that were negative. His pacemaker was interrogated and apparently was in atrial fibrillation with a controlled rate. He is not a high risk for stroke and he is not a candidate for anticoagulation for the time being. His flecainide was increased to 100 mg, he is starting also on a fentanyl patch 50 mcg an hour and he has an appointment to be seen by Dr. Houser on 11/01/2018. He apparently has had normal cardiac catheterization in August 2017. His echo and cardiac catheterization are normal in May 2017 and has a normal nuclear stress test in October 2016. When I saw him this afternoon, he continued to complain of severe headache; however, nursing staff stated that he seemed to have responded to fentanyl patch and a decision was made to discharge him home to continue with his fentanyl patch 50 mcg per hour q. 72 hours. Continue with his other medication and to increase his flecainide to 100 mg twice a day. PHYSICAL EXAMINATION: GENERAL: When I saw him this afternoon, he looked well and was clearly in no apparent respiratory distress. No pallor, jaundice, cyanosis, or thyromegaly. No jugular venous distension. No lower limb edema. VITAL SIGNS: His heart rate was 76, blood pressure 147/100, temperature was 97.3, respiratory rate was 18, and oxygen saturation was 92%. HEAD, EYES, EARS, NOSE AND THROAT: Normocephalic, atraumatic. NECK: Supple. HEART: Showed normal first and second heart sounds. No gallop, rub or murmur. CHEST: Clear to auscultation. No crepitation or rhonchi. ABDOMEN: Distended, soft, nontender. No guarding or rigidity. No organomegaly. All hernial orifice intact. Bowel sounds normal. NEUROLOGIC: He was awake, alert, responding appropriately. All cranial nerves intact. EXTREMITIES: He moves extremities without difficulty. He ambulates without assistance or assistive devices. LABORATORY DATA: His lab work as of this morning showed a white cell count of 6600, hemoglobin 16, hematocrit 46, MCV 93, and platelet count of 187,000. His chemistry showed a serum sodium 142, potassium 3.8, chloride 108, bicarbonate 29, anion gap of 5, BUN 24, creatinine 1.2, estimated GFR was 63 mL per minute. His glucose 103, calcium was 8.5, and magnesium 2.2. Total bilirubin and alkaline phosphatase were normal. AST, ALT slightly elevated. He has 3 sets of cardiac enzymes showed troponin to be less than 0.017. Total protein 6.9, albumin was 3.4. TSH was 1.673. Today his prothrombin time was 10.2 and INR of 1. His influenza A and B were negative. DISCHARGE MEDICATIONS: He will be discharged home to continue on following medications: Fentanyl patch 50 mcg per hour topically q. 72 hours, flecainide acetate 100 mg twice a day, aspirin 325 mg once a day, hydrocodone/CPAP 10/325 two tablets every 6 hours, metoprolol tartrate 25 mg twice a day, losartan/hydrochlorothiazide 20/12.5 mg once a day, oxycodone 7.5/325 one tablet twice a day, tizanidine 4 mg at bedtime and Coenzyme 50 mg p.o. daily. FINAL DISCHARGE DIAGNOSES: 1. Chest pain, atypical. The patient has 3 sets of cardiac enzymes that were negative. The patient has been extensively investigated and has a cardiac catheterization, echocardiogram in October 2014, which showed normal ventricular ejection fraction. He has a normal nuclear stress test in October 2016 and normal cardiac catheterization in August 2017. 2. Paroxysmal atrial fibrillation, rate controlled, not a candidate for anticoagulation. His flecainide was increased to 100 mg twice a day. 3. Severe degenerative disk disease with bilateral foraminal stenosis likely the cause of his severe pain, headache and chest pain. 4. Hypertension, well controlled. 5. Sick sinus syndrome, status post permanent pacemaker, functioning appropriately. SUGAR GARRETT MD DR: LOYDA/mabel JOB#: [id number] / [id number]
--- NOTE | 2018-10-20 14:07 | EKG ---
[address] [address] Test Date: 2018-10-18 Test Time: 12:45:33 Pat Name: XOCHITL NGO Department: Room: 105 A Gender: M Technical Consultant: : [id number] Requested By: BYRON CHEATHAM Order Number: [id number] Reading MD: Anthony Moore MD Measurements Intervals [place] Rate: 78 P: 0 TN: 136 QRS: -2 QRSD: 114 T: 5 QT: 400 QTc: 460 Interpretive Statements PROBABLE A-PACED RBBB CANNOT RULE OUT PACING ARTIFACT Electronically Signed On 10-21-2018 22:05:48 CDT by Anthony Moore MD
== END 2018-10-19 14:10 | disposition home or self-care (01) ==
LOC: ER 06:43 → INTOOBSV 09:03 → 1 SOUTH 09:03
PROVIDERS: ADMIT Internal Medicine; ATTEND Internal Medicine
DX: R07.89 Other chest pain (principal); I48.0 Paroxysmal atrial fibrillation; I10 Essential (primary) hypertension; M48.02 Spinal stenosis, cervical region; I25.10 Atherosclerotic heart disease of native coronary artery without angina pectoris; I49.5 Sick sinus syndrome; Z88.8 Allergy status to other drugs, medicaments and biological substances; Z88.1 Allergy status to other antibiotic agents; M50.30 Other cervical disc degeneration, unspecified cervical region; M51.36 Other intervertebral disc degeneration, lumbar region; Z87.891 Personal history of nicotine dependence; R11.10 Vomiting, unspecified; Z80.1 Family history of malignant neoplasm of trachea, bronchus and lung; Z82.49 Family history of ischemic heart disease and other diseases of the circulatory system; Z82.5 Family history of asthma and other chronic lower respiratory diseases; Z83.3 Family history of diabetes mellitus; Z87.11 Personal history of peptic ulcer disease; Z87.442 Personal history of urinary calculi; Z95.0 Presence of cardiac pacemaker
CPT/HCPCS: 36415; 70450; 71045; 72125; 80053; 80307; 83690; 83735; 83880; 84443; 84484; 85025; 85610; 87804; 93005; 96361; 96374; 96375; 96376; 99284; G0378; J1200; J1885; J2405; J3010; G0379; J7030

== ENCOUNTER 2018-10-22 12:04 | Emergency (ER) | payer BC ==
[~2018-10-22] VITALS: Ht 175.3 cm; Wt 89.7 kg
[~2018-10-22 12:04] MED LIST changes: +FENT1PAT17 TP; +FLEC100T PO; +HYDR-52 PO; +UBID50CA PO
--- NOTE | 2018-10-22 12:26 | PHYS DOC ---
Past History Past Medical History: A-Fib, CAD, Hypertension Past Surgical History: Cholecystectomy, Pacemaker, Other Additional Past Surgical Histo: right elbow and right wrist Smoking: Quit Greater Than 1 Year Alcohol Use: None Drug Use: None Adult General Chief Complaint Chief Complaint: CHEST PAIN [facility] HPI Patient is a 52-year-old male who presents with chest pain, neck pain, headache , and visual changes in both eyes. This started approximately an hour ago while he was driving. He returned home took his blood pressure and found that was in the 60s systolic. He called his ware server, Dr. Dyson, who directed him to present to the emergency department. He reports that the visual changes have changed from a bright light to a slightly dimmer than usual vision. Nothing seems to make the discomfort better or worse. He was admitted to the hospital several days ago for similar symptoms and found to have negative cardiac enzymes at that time. CT scan of the head and cervical spine showed severe multilevel degenerative disease, no evidence of stroke at that time. Nothing seems to make today's symptoms better or worse.[] Review of Systems Review of Systems Constitutional: Denies fever or chills [] Eyes: Denies redness, or eye pain [] HENT: Denies nasal congestion or sore throat [] Respiratory: Denies cough or shortness of breath [] Cardiovascular: No additional information not addressed in HPI [] GI: Denies abdominal pain, nausea, vomiting, bloody stools or diarrhea [] : Denies dysuria or hematuria [] Musculoskeletal: Denies back pain or joint pain [] Integument: Denies rash or skin lesions [] Neurologic: Denies focal weakness or sensory changes [] Endocrine: Denies polyuria or polydipsia [] All other systems were reviewed and found to be within normal limits, except as documented in this note. Current Medications Current Medications Current Medications Medications (Trade) Dose Ordered Sig/Brenda Start Time Stop Time Status Last Admin Dose Admin Aspirin (Children'S Aspirin) 324 mg 1X ONCE 10/22/18 12:15 10/22/18 12:16 UNV Sodium Chloride 1,000 ml @ 1,000 mls/hr 1X ONCE 10/22/18 12:30 10/22/18 13:29 UNV Allergies Allergies Allergies Coded Allergies Type Severity Reaction Last Updated Verified amoxicillin Allergy Intermediate 10/18/18 Yes Physical Exam Physical Exam Constitutional: Well developed, well nourished, no acute distress, non-toxic appearance. [] HENT: Normocephalic, atraumatic, bilateral external ears normal, oropharynx moist, no oral exudates, nose normal. [] Eyes: PERRLA, EOMI, conjunctiva normal, no discharge. Normal fundi [] Neck: Normal range of motion, no tenderness, supple, no stridor. [] Cardiovascular:Heart rate regular rhythm, no murmur [] Lungs & Thorax: Bilateral breath sounds clear to auscultation [] Abdomen: Bowel sounds normal, soft, no tenderness, no masses, no pulsatile masses. [] Skin: Warm, dry, no erythema, no rash. [] Back: No tenderness, no CVA tenderness. [] Extremities: No tenderness, no cyanosis, no clubbing, ROM intact, no edema. [] Neurologic: Alert and oriented X 3, normal motor function, normal sensory function, no focal deficits noted. [] Psychologic: Affect normal, judgement normal, mood normal. [] EKG EKG EKG shows a sinus rhythm at 70 bpm, left axis at -19, QTC of 457 ms, no ST elevations, no acute changes when compared with EKG of 10/18/2018. Interpreted by me at 1213[] Radiology/Procedures Radiology/Procedures CT HEAD INDICATION: CT HEAD FOR headache and visual changes, chest and neck pain COMPARISON: 10/18/2018 Exposure: One or more of the following individualized dose reduction techniques were utilized for this examination: 1. Automated exposure control 2. Adjustment of the mA and/or kV according to patient size 3. Use of iterative reconstruction technique TECHNIQUE: 5 mm contiguous axial images were obtained from the skull base to the vertex in both bone and soft tissue algorithm. FINDINGS: No abnormal attenuation within the brain parenchyma. No evidence of acute intracranial hemorrhage. No extra-axial fluid collections. No mass effect or midline shift. Ventricular size is appropriate. Basal cisterns are patent. No fractures identified.Barger-white differentiation is preserved.Globes and orbits are within normal limits. Paranasal sinuses and mastoid air cells are clear. IMPRESSION: No acute intracranial findings. PORTABLE CHEST 1V Clinical indications: PCXR for chest pain, and reoccurring neck and arm pain COMPARISON: October 18, 2018. Findings: No acute lung infiltrate or pleural effusion or pulmonary edema or lung mass or pneumothorax is seen. The heart size, pulmonary vasculature, mediastinum and both noble are unremarkable. Impression: No acute radiographic abnormality is seen.[] Course & Med Decision Making Course & Med Decision Making Pertinent Labs and Imaging studies reviewed. (See chart for details) ED course: Patient arrived, was placed in bed, and tolerated exam well. He was noted to be hypotensive, IV fluids were started with an improvement in his blood pressure. Further discussion was made with the patient, he denies taking any nitroglycerin tablets, and no phosphodiesterase inhibitors for ED. He was transported to and from [place] with any complications. He was given aspirin. Due to his low NIH score he was deemed not a candidate for lytic therapy. Consultation was made with the hospitalist at [facility], however due to his low blood pressure, neurologic symptoms, the hospitalist felt that the patient would be better served at a facility that had both cardiology as well as neurology available. So the list at [facility] was contacted for admission. Dr. Yanez graciously accepted the patient in transfer. Findings were discussed with patient and family who voiced understanding. Patient was transferred in improved condition. Medical decision making: Patient does not appear to have a STEMI, however given his previous cardiac history along with the demonstrated hypotension in the emergency department, he is being admitted to [place]. Also due to the neurologic symptoms which may be due to a low flow state and no availability of neurology here again patient is being transferred. Patient has an NIH stroke score of 0, so he is not a candidate for thrombolytic therapy at this time.[] Dragon Disclaimer Dragon Disclaimer This electronic medical record was generated, in whole or in part, using a voice recognition dictation system. Departure Departure: Impression: Primary Impression: Atypical chest pain Additional Impressions: Hypotension Headache Disposition: 05 TRANSFER OTHER Condition: IMPROVED Referrals: NAVARRO RUIZ (PCP) NIHSS - ED NIH Stroke Scale: NIH Stroke Scale Response (Comments) Value Level of Consciousness: 0 Alert/Responsive 0 LOC Questions: 0 Answers both correctly 0 LOC Commands: 0 Performs both tasks 0 Best Gaze: 0 Normal 0 Visual: 0 No visual loss 0 Facial Palsy: 0 Normal, symmetrical 0 Motor - Left Arm 0 No drift 0 Motor - Right Arm 0 No drift 0 Motor - Left Leg 0 No drift 0 Motor: Right Leg 0 No drift 0 Limb Ataxia: 0 Absent 0 Sensory: 0 No loss 0 Best Language: 0 Normal 0 Dysathria: 0 Normal 0 Extinction and Inattention: 0 Normal 0 Total 0 Problem Qualifiers Additional Impressions: Hypotension Hypotension type: unspecified hypotension type Qualified Codes: I95.9 - Hypotension, unspecified Headache Headache type: unspecified Headache chronicity pattern: unspecified pattern Intractability: not intractable Qualified Codes: R51 - Headache FERNANDO DUMONT DO Oct 22, 2018 12:26
[2018-10-22] MEDS ORDERED: IV NORMAL SALINE 1,000ML 1,000 ML IV ONE (12:30)
--- NOTE | 2018-10-22 12:33 | RAD ---
PORTABLE CHEST 1V Clinical indications: PCXR for chest pain, and reoccurring neck and arm pain COMPARISON: October 18, 2018. Findings: No acute lung infiltrate or pleural effusion or pulmonary edema or lung mass or pneumothorax is seen. The heart size, pulmonary vasculature, mediastinum and both noble are unremarkable. Impression: No acute radiographic abnormality is seen. Electronically signed by: Mike Perkins MD (10/22/2018 12:30 PM) [facility] [place]
[2018-10-22 12:42] LABS: BASO # 0.1 x10^3/uL (0.0-0.2); BASO % 1 % (0-3); EOS # 0.2 x10^3/uL (0.0-0.7); EOS % 3 % (0-3); HEMATOCRIT 48.1 % (39.0-53.0); HEMOGLOBIN 16.8 g/dL (13.0-17.5); LYMPH # 3.1 x10^3/uL (1.0-4.8); LYMPH % 43 % (24-48); MEAN CORPUSCULAR HEMOGLOBIN 32 pg (25-35); MEAN CORPUSCULAR HGB CONC 35 g/dL (31-37); MEAN CORPUSCULAR VOLUME 92 fL (79-100); MONO # 0.6 x10^3/uL (0.0-1.1); MONO % 8 % (0-9); NEUT # 3.4 x10^3uL (1.8-7.7); NEUT % 46 % (31-73); PLATELET COUNT 260 x10^3/uL (140-400); RED BLOOD COUNT 5.22 x10^6/uL (4.30-5.70); RED CELL DISTRIBUTION WIDTH 13.1 % (11.5-14.5); WHITE BLOOD COUNT 7.4 x10^3/uL (4.0-11.0)
--- NOTE | 2018-10-22 12:43 | RAD ---
CT HEAD INDICATION: CT HEAD FOR headache and visual changes, chest and neck pain COMPARISON: 10/18/2018 Exposure: One or more of the following individualized dose reduction techniques were utilized for this examination: 1. Automated exposure control 2. Adjustment of the mA and/or kV according to patient size 3. Use of iterative reconstruction technique TECHNIQUE: 5 mm contiguous axial images were obtained from the skull base to the vertex in both bone and soft tissue algorithm. FINDINGS: No abnormal attenuation within the brain parenchyma. No evidence of acute intracranial hemorrhage. No extra-axial fluid collections. No mass effect or midline shift. Ventricular size is appropriate. Basal cisterns are patent. No fractures identified.Barger-white differentiation is preserved.Globes and orbits are within normal limits. Paranasal sinuses and mastoid air cells are clear. IMPRESSION: No acute intracranial findings. Electronically signed by: Noah Mohr MD (10/22/2018 12:40 PM) [id number]
[2018-10-22] MEDS ORDERED: ASPIRIN 81 MG TAB.CHEW PO ONE (12:45)
[2018-10-22 12:55] LABS: ALBUMIN 3.5 g/dL (3.4-5.0); ALBUMIN/GLOBULIN RATIO 0.9 (1.0-1.7); CALCIUM 9.4 mg/dL (8.5-10.1); CREATININE 1.8 mg/dL (0.7-1.3); GFR 39.7; MAGNESIUM 2.3 mg/dL (1.8-2.4); POTASSIUM 4.2 mmol/L (3.5-5.1); TOTAL BILIRUBIN 0.4 mg/dL (0.2-1.0); TOTAL PROTEIN 7.2 g/dL (6.4-8.2)
[2018-10-22 13:30] VITALS: BP 90/61
[2018-10-22] MEDS ORDERED: PROCHLORPERAZINE 10 MG/2 ML VIAL. IV ONE (14:00)
[2018-10-22] MEDS ORDERED: diphenhydrAMINE 50 MG/ML VIAL IVP ONE (14:00)
--- NOTE | 2018-10-23 06:40 | EKG ---
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
== END 2018-10-22 14:20 ==
LOC: ER 12:04
DX: R07.89 Other chest pain (principal); I95.9 Hypotension, unspecified; M54.2 Cervicalgia; R51 Headache; I48.91 Unspecified atrial fibrillation; I25.10 Atherosclerotic heart disease of native coronary artery without angina pectoris; I10 Essential (primary) hypertension; Z87.891 Personal history of nicotine dependence; Z88.1 Allergy status to other antibiotic agents
CPT/HCPCS: 36415; 70450; 71045; 80053; 83690; 83735; 83880; 84484; 85025; 85379; 85610; 93005; 96374; 96375; 99285; J0780; J1200; J7030

== ENCOUNTER 2018-11-08 03:30 | Emergency (ER) | payer BC ==
[~2018-11-08] VITALS: Ht 175.3 cm; Wt 95.3 kg
[2018-11-08] MEDS ORDERED: IV NORMAL SALINE 1,000ML 1,000 ML IV SCH (03:48)
[2018-11-08] MEDS ORDERED: ONDANSETRON PF 4 MG/2 ML VIAL. IV ONE (04:00)
[2018-11-08] MEDS ORDERED: METOCLOPRAMIDE HCL 10 MG/2 ML VIAL. IV ONE ×2 (04:15→06:15)
[2018-11-08] MEDS ORDERED: diphenhydrAMINE 50 MG/ML VIAL IVP ONE (04:15)
[2018-11-08 04:18] LABS: BASO # 0.1 x10^3/uL (0.0-0.2); BASO % 1 % (0-3); EOS % 0 % (0-3); HEMATOCRIT 54.6 % (39.0-53.0); HEMOGLOBIN 19.1 g/dL (13.0-17.5); LYMPH # 1.8 x10^3/uL (1.0-4.8); LYMPH % 21 % (24-48); MEAN CORPUSCULAR HEMOGLOBIN 32 pg (25-35); MEAN CORPUSCULAR HGB CONC 35 g/dL (31-37); MEAN CORPUSCULAR VOLUME 90 fL (79-100); MONO # 0.5 x10^3/uL (0.0-1.1); MONO % 6 % (0-9); NEUT # 6.5 x10^3uL (1.8-7.7); NEUT % 73 % (31-73); PLATELET COUNT 300 x10^3/uL (140-400); RED BLOOD COUNT 6.05 x10^6/uL (4.30-5.70); RED CELL DISTRIBUTION WIDTH 13.2 % (11.5-14.5)
[2018-11-08 04:32] LABS: CALCIUM 9.7 mg/dL (8.5-10.1); CREATININE 1.2 mg/dL (0.7-1.3); GFR 63.1; POTASSIUM 3.9 mmol/L (3.5-5.1); TOTAL BILIRUBIN 0.9 mg/dL (0.2-1.0); TOTAL PROTEIN 8.2 g/dL (6.4-8.2)
[2018-11-08] MEDS ORDERED: IOHEXOL 300 MG/ML 75 ML VIAL. IV ONE (05:30)
[2018-11-08] MEDS ORDERED: CONTRAST GIVEN MC PRN (05:30)
[2018-11-08] MEDS ORDERED: IOHEXOL 350 MG/ML 100 ML VIAL. IV ONE (05:30)
[2018-11-08 05:32] LABS: BACTERIA,URINE 0 /HPF (0-FEW); BILIRUBIN,URINE NEG (NEG); CLARITY,URINE CLEAR; COLOR,URINE YELLOW; GLUCOSE,URINE NEG (NEG); NITRITE,URINE NEG (NEG); RBC,URINE 0 /HPF (0-2); SQUAMOUS EPITHELIAL CELL,UR OCC /LPF; UROBILINOGEN,URINE 0.2 mg/dL (0.2 mg/dL); WBC,URINE OCC /HPF (0-4)
--- NOTE | 2018-11-08 05:59 | PHYS DOC ---
Past History Past Medical History: A-Fib, Heart Disease, Hypertension Past Surgical History: Cholecystectomy Additional Past Surgical Histo: right elbow and right wrist Smoking: Quit Greater Than 1 Year Alcohol Use: None Drug Use: None Adult General Chief Complaint Chief Complaint: NAUSEA/VOMITING/DIARRHEA [facility] Patient is a 53-year-old male who presents with 2 day history of nausea with vomiting and diarrhea along with abdominal cramping. Patient states that he has not been able to keep anything down to include clear liquids. Currently he rates the pain in his abdomen at about a 4 out of 10 but states that at its worse it gets to an 8-9 out of 10. He states that vomiting seems to help with the pain. He denies any fever. He states the majority of the pain is between the umbilicus and epigastric region. Patient states that nothing is improving his symptoms. Review of Systems Review of Systems Constitutional: Denies fever or chills [] Respiratory: Denies cough or shortness of breath [] Cardiovascular: No additional information not addressed in HPI [] GI: Complains of abdominal cramping with nausea, vomiting and diarrhea [] Musculoskeletal: Denies back pain or joint pain [] All other systems were reviewed and found to be within normal limits, except as documented in this note. Current Medications Current Medications Current Medications Medications (Trade) Dose Ordered Sig/Brenda Start Time Stop Time Status Last Admin Dose Admin Diphenhydramine HCl (Benadryl) 25 mg 1X ONCE 11/08/18 04:15 11/08/18 04:16 DC 11/08/18 04:30 25 MG Info (Do NOT chart on this entry -- for MONITORING) 1 each PRN DAILY PRN 11/08/18 05:30 11/10/18 05:29 Iohexol (Omnipaque 300 Mg/ml) 75 ml 1X ONCE 11/08/18 05:30 11/08/18 05:31 DC 11/08/18 05:29 75 ML Iohexol (Omnipaque 350 Mg/ml) 100 ml 1X ONCE 11/08/18 05:30 11/08/18 05:31 UNV Metoclopramide HCl (Reglan Vial) 10 mg 1X ONCE 11/08/18 04:15 11/08/18 04:16 DC 11/08/18 04:30 10 MG Ondansetron HCl (Zofran) 4 mg 1X ONCE 11/08/18 04:00 11/08/18 04:09 DC 11/08/18 04:06 4 MG Sodium Chloride 1,000 ml @ 1,000 mls/hr Q1H 11/08/18 03:48 11/08/18 04:47 DC 11/08/18 04:07 1,000 MLS/HR Allergies Allergies Allergies Coded Allergies Type Severity Reaction Last Updated Verified amoxicillin Allergy Intermediate 10/18/18 Yes Physical Exam Physical Exam Constitutional: Well developed, well nourished, no acute distress, non-toxic appearance. [] HENT: Normocephalic, atraumatic, bilateral external ears normal, oropharynx moist, no oral exudates, nose normal. [] Eyes: PERRLA, EOMI, conjunctiva normal, no discharge. [] Neck: Normal range of motion, no tenderness, supple, no stridor. [] Cardiovascular:Heart rate regular rhythm, no murmur [] Lungs & Thorax: Bilateral breath sounds clear to auscultation [] Abdomen: Bowel sounds normal, soft, with moderate epigastric tenderness. [] Skin: Warm, dry, no erythema, no rash. [] Extremities: No tenderness, no cyanosis, no clubbing, ROM intact, no edema. [] Neurologic: Alert and oriented X 3, no focal deficits noted. [] Current Patient Data Vital Signs Vital Signs Date Time Temp Pulse Resp B/P (MAP) Pulse Ox O2 Delivery O2 Flow Rate FiO2 11/08/18 03:45 98.2 129 16 97 Room Air Lab Results Laboratory Tests Test 11/08/18 03:55 11/08/18 04:00 White Blood Count 9.0 x10^3/uL (4.0-11.0) Red Blood Count 6.05 x10^6/uL (4.30-5.70) H Hemoglobin 19.1 g/dL (13.0-17.5) H Hematocrit 54.6 % (39.0-53.0) H Mean Corpuscular Volume 90 fL (79-100) Mean Corpuscular Hemoglobin 32 pg (25-35) Mean Corpuscular Hemoglobin Concent 35 g/dL (31-37) Red Cell Distribution Width 13.2 % (11.5-14.5) Platelet Count 300 x10^3/uL (140-400) Neutrophils (%) (Auto) 73 % (31-73) Lymphocytes (%) (Auto) 21 % (24-48) L Monocytes (%) (Auto) 6 % (0-9) Eosinophils (%) (Auto) 0 % (0-3) Basophils (%) (Auto) 1 % (0-3) Neutrophils # (Auto) 6.5 x10^3uL (1.8-7.7) Lymphocytes # (Auto) 1.8 x10^3/uL (1.0-4.8) Monocytes # (Auto) 0.5 x10^3/uL (0.0-1.1) Eosinophils # (Auto) 0.0 x10^3/uL (0.0-0.7) Basophils # (Auto) 0.1 x10^3/uL (0.0-0.2) Sodium Level 138 mmol/L (136-145) Potassium Level 3.9 mmol/L (3.5-5.1) Chloride Level 101 mmol/L (98-107) Carbon Dioxide Level 22 mmol/L (21-32) Anion Gap 15 (6-14) H Blood Urea Nitrogen 23 mg/dL (8-26) Creatinine 1.2 mg/dL (0.7-1.3) Estimated GFR (Cockcroft-Gault) 63.1 BUN/Creatinine Ratio 19 (6-20) Glucose Level 150 mg/dL (70-99) H Calcium Level 9.7 mg/dL (8.5-10.1) Total Bilirubin 0.9 mg/dL (0.2-1.0) Aspartate Amino Transferase (AST) 47 U/L (15-37) H Alanine Aminotransferase (ALT) 110 U/L (16-63) H Alkaline Phosphatase 100 U/L (46-116) Total Protein 8.2 g/dL (6.4-8.2) Albumin 4.0 g/dL (3.4-5.0) Albumin/Globulin Ratio 1.0 (1.0-1.7) Lipase 64 U/L (73-393) L Urine Collection Type Unknown Urine Color Yellow Urine Clarity Clear Urine pH 5.0 Urine Specific [place] 1.020 Urine Protein 30 mg/dl (NEG-TRACE) Urine Glucose (UA) Neg mg/dL (NEG) Urine Ketones (Stick) 80 mg/dL (NEG) Urine Blood Neg (NEG) Urine Nitrite Neg (NEG) Urine Bilirubin Neg (NEG) Urine Urobilinogen Dipstick 0.2 mg/dL (0.2 mg/dL) Urine Leukocyte Esterase Neg (NEG) Urine RBC 0 /HPF (0-2) Urine WBC Occ /HPF (0-4) Urine Squamous Epithelial Cells Occ /LPF Urine Bacteria 0 /HPF (0-FEW) EKG EKG [] Radiology/Procedures Radiology/Procedures [] Impressions: PROCEDURE: CT ABD PELV W/ IV CONTRST ONLY CT abdomen and pelvis with contrast PQRS statement: CT scans at this facility use dose reduction including either automated exposure control, iterative reconstructions, and /or weight based radiation dosing via mA and kV modification when appropriate to reduce radiation dose to as low as reasonably achievable. HISTORY: Abdominal pain, nausea, vomiting and diarrhea. TECHNIQUE: Helical CT imaging of the abdomen and pelvis with 75 mL Omnipaque 300 intravenous contrast. Abdomen findings: Lung bases unremarkable. L5 spondylolisthesis with bilateral pars defects and grade 1 anterolisthesis along with L5-S1 disc bulge, with severe neural foraminal stenoses. Disc bulges at L4-L5 and L3-4 also noted. Dilation of the common bile duct typical after cholecystectomy. Pancreas, adrenals, spleen, liver and kidneys are unremarkable. Cardiac pacemaker. Appendix is negative. No abdominal fluid or adenopathy. Pelvis findings: Bladder, prostate, rectum and bones are unremarkable. IMPRESSION: No acute process. The appendix is negative. Electronically signed by: Luiz Rodriguez MD (11/08/2018 5:57 AM) Course & Med Decision Making Course & Med Decision Making Pertinent Labs and Imaging studies reviewed. (See chart for details) Patient moved to room upon arrival was evaluated by your medical staff after which an IV was established and blood work was drawn. Patient given IV fluids as well as Zofran for nausea. Patient continued to have nausea with vomiting and was subsequently given a dose of Reglan and Benadryl. At this time, CT of the abdomen and pelvis is pending and patient is being signed out to oncoming ER physician at 6:00 AM. Dragon Disclaimer Dragon Disclaimer This electronic medical record was generated, in whole or in part, using a voice recognition dictation system. Departure Departure: Impression: Primary Impression: Gastroenteritis Disposition: 01 HOME, SELF-CARE Condition: STABLE Referrals: NAVARRO RUIZ (PCP) Patient Instructions: Viral Gastroenteritis Scripts Diphenoxylate Hcl/Atropine (LOMOTIL TABLET) 1 Each Tablet 1 TAB PO TID PRN for DIARRHEA, #15 TAB Prov: HECTOR RUSS Jr. DO 11/08/18 Ondansetron Hcl (ZOFRAN) 4 Mg Tablet 4 MG PO Q6HRS PRN for NAUSEA, #12 TAB Prov: HECTOR RUSS Jr. DO 11/08/18 HECTOR RUSS Jr. DO Nov 08, 2018 05:59
[2018-11-08] MEDS ORDERED: DIPH1TAB PO (06:05)
[2018-11-08] MEDS ORDERED: ONDA4TAB7 PO (06:05)
[2018-11-08 06:06] VITALS: BP 157/106
== END 2018-11-08 06:13 | disposition home or self-care (01) ==
LOC: ER 03:30
DX: K52.9 Noninfective gastroenteritis and colitis, unspecified (principal); I48.91 Unspecified atrial fibrillation; I11.9 Hypertensive heart disease without heart failure; Z87.891 Personal history of nicotine dependence; Z90.49 Acquired absence of other specified parts of digestive tract; Z88.1 Allergy status to other antibiotic agents
CPT/HCPCS: 36415; 74177; 80053; 81001; 83690; 85025; 96361; 96374; 96375; 96376; 99285; J1200; J2405; J2765; Q9967; J7030

== ENCOUNTER → 2019-03-13 | Outpatient (CLI) | payer BC ==
[~2019-03-13] MED LIST changes: +DIPH1TAB PO; +ONDA4TAB7 PO; -TIZA4TAB PO; +TIZA4TAB2 PO
--- NOTE | 2019-03-13 09:41 | RAD ---
EXAM: Abdomen sonogram. HISTORY: Elevated liver enzymes laboratory values. TECHNIQUE: Sonographic imaging of the abdomen was performed. COMPARISON: CT dated 11/08/2018. FINDINGS: The liver is normal in size. No focal hepatic lesion is seen. The common bile duct is normal in caliber. The gallbladder is surgically absent. The kidneys and spleen are unremarkable. The pancreas, aorta and inferior vena cava are obscured due to bowel gas. IMPRESSION: 1. Limited exam due to bowel gas. The midline structures are obscured. 2. No finding to correlate with abnormal liver enzymes laboratory values. Electronically signed by: Sridevi Garcia MD (03/13/2019 9:38 AM) [id number]
== END | disposition home or self-care (01) ==
LOC: US 08:50
PROVIDERS: ATTEND Physician Assistant Medical
DX: R74.8 Abnormal levels of other serum enzymes (principal); Z90.49 Acquired absence of other specified parts of digestive tract
CPT/HCPCS: 76700

== ENCOUNTER → 2019-04-16 | Outpatient (CLI) | payer BC ==
--- NOTE | 2019-04-16 13:26 | RAD ---
EXAM: Chest, 2 views. HISTORY: Cough. COMPARISON: 10/22/2018. FINDINGS: 2 views of the chest are obtained. There is no infiltrate, pleural effusion or pneumothorax. The heart is normal in size. There is a cardiac pacemaker with leads in expected position. IMPRESSION: No acute pulmonary finding. Electronically signed by: Sridevi Garcia MD (04/16/2019 1:23 PM) [facility]
== END | disposition home or self-care (01) ==
LOC: DXRAD 07:35
PROVIDERS: ATTEND Physician Assistant Medical
DX: R05 Cough (principal); Z95.5 Presence of coronary angioplasty implant and graft
CPT/HCPCS: 71046

== ENCOUNTER → 2019-05-03 | Outpatient (CLI) | payer BC ==
--- NOTE | 2019-05-03 10:37 | RAD ---
Left lower extremity venous real time grayscale, color and spectral duplex ultrasound was performed. History: Left leg pain and swelling Comparison: None The left common femoral, femoral, and popliteal veins demonstrate anechoic lumina, full compressibility, augmentable waveforms, and cephalad color Doppler flow. The posterior tibial are also patent. Normal flow is also seen in the cephalad portion of the saphenous vein. Impression: No evidence of DVT in the left lower extremity. Electronically signed by: Chris Rothman MD (05/03/2019 10:34 AM) [facility]
== END | disposition home or self-care (01) ==
LOC: US 09:37
PROVIDERS: ATTEND Physician Assistant Medical
DX: M79.89 Other specified soft tissue disorders (principal)
CPT/HCPCS: 93971

== ENCOUNTER → 2019-05-06 | Outpatient (CLI) | payer BC ==
--- NOTE | 2019-05-07 08:21 | RAD ---
Examination: VENOUS REFLUX LEFT History: Left leg pain Comparison/Correlation: None Findings: Left lower extremity venous reflux ultrasonogram was performed. Slight reflux at the great saphenous vein at the saphenofemoral junction of 1.2 seconds is noted with length of 0.42 cm. Slight reflux at the origin of the great saphenous vein of less than 1 second distal to the origin and proximal to mid greater saphenous vein is evident. There is no lesser saphenous venous insufficiency identified. Impression: Minimal reflux involving the great saphenous vein at the saphenofemoral junction Electronically signed by: Jhon Ku MD (05/07/2019 8:18 AM) [facility]
== END | disposition home or self-care (01) ==
LOC: US 10:04
PROVIDERS: ATTEND Physician Assistant Medical
DX: I87.2 Venous insufficiency (chronic) (peripheral) (principal)
CPT/HCPCS: 93971

== ENCOUNTER 2020-05-12 07:54 | Emergency (ER) | payer BC ==
[~2020-05-12] VITALS: Ht 175.3 cm; Wt 87.7 kg
[~2020-05-12 07:54] MED LIST changes: +HYDR-2767 PO; -HYDR-52 PO
--- NOTE | 2020-05-12 08:22 | PHYS DOC ---
Past History Past Medical History: A-Fib, Heart Disease, Hypertension Past Surgical History: Cholecystectomy Additional Past Surgical Histo: right elbow and right wrist Smoking: Quit Greater Than 1 Year Alcohol Use: None Drug Use: None General Adult EDM: Chief Complaint: RAPID HEART RATE HPI: HPI: 54-year-old male presents with concern for A. fib. Patient was called by [facility] and told that he had been in A. fib and they need to go see his doctor. He went to his primary care physician here who sent him to the emergency room. Patient had an ablation several weeks ago. He is no longer on Eliquis but continues to take metoprolol and Cardizem. He thought he noticed his rapid heartbeat yesterday. They told him he was in A. fib overnight last night. Patient denies any new or unusual symptoms. He denies fever or chills. Review of Systems: Review of Systems: Constitutional: Denies fever or chills Eyes: Denies change in visual acuity HENT: Denies nasal congestion or sore throat Respiratory: Denies cough or shortness of breath Cardiovascular: Rapid heartbeat GI: Denies abdominal pain, nausea, vomiting, bloody stools or diarrhea : Denies dysuria Musculoskeletal: Denies back pain or joint pain Integument: Denies rash Neurologic: Denies headache, focal weakness or sensory changes Endocrine: Denies polyuria or polydipsia Lymphatic: Denies swollen glands Psychiatric: Denies depression or anxiety Allergies: Allergies: Allergies Coded Allergies Type Severity Reaction Last Updated Verified amoxicillin Allergy Intermediate 05/12/20 Yes duloxetine Allergy Unknown 05/12/20 Yes Uncoded Allergies Type Severity Reaction Last Updated Verified CODEIN Allergy Unknown 05/12/20 Physical Exam: PE: Constitutional: Well developed, well nourished, no acute distress, non-toxic appearance. [] HENT: Normocephalic, atraumatic, bilateral external ears normal, oropharynx moist, no oral exudates, nose normal. [] Eyes: PERRLA, EOMI, conjunctiva normal, no discharge. [] Neck: Normal range of motion, no tenderness, supple, no stridor. [] Cardiovascular: Heart rate regular rhythm, no murmur [] Lungs & Thorax: Bilateral breath sounds clear to auscultation [] Abdomen: Bowel sounds normal, soft, no tenderness, no masses, no pulsatile masses. [] Skin: Warm, dry, no erythema, no rash. [] Back: No tenderness, no CVA tenderness. [] Extremities: No tenderness, no cyanosis, no clubbing, ROM intact, no edema. [] Neurologic: Alert and oriented X 3, normal motor function, normal sensory function, no focal deficits noted. [] Psychologic: Affect normal, judgement normal, mood normal. [] EKG: EKG: Sinus rhythm, rate 97, leftward axis, no ST elevations or depressions. [] Radiology/Procedures: Radiology/Procedures: [] Heart Score: Risk Factors: Risk Factors: DM, Current or recent (<one month) smoker, HTN, HLP, family history of CAD, obesity. Risk Scores: Score 0 - 3: 2.5% MACE over next 6 weeks - Discharge Home Score 4 - 6: 20.3% MACE over next 6 weeks - Admit for Clinical Observation Score 7 - 10: 72.7% MACE over next 6 weeks - Early Invasive Strategies Course & Med Decision Making: Course & Med Decision Making Pertinent Labs and Imaging studies reviewed. (See chart for details) The patient's labs are significant for an elevated BUN and creatinine and the patient looks a bit clinically dry. I gave him a liter normal saline. He also has a potassium of 3 so we will give him oral potassium replacement. His EKG shows sinus rhythm at this time. The patient will follow up with his gas cutter later this afternoon. He will share his results from this visit with them. He is stable for discharge at this time. [] Dragon Disclaimer: Dragon Disclaimer: This electronic medical record was generated, in whole or in part, using a voice recognition dictation system. Departure Departure: Impression: Primary Impression: Paroxysmal atrial fibrillation Additional Impressions: Hypokalemia Elevated serum creatinine Disposition: 01 DC HOME SELF CARE/HOMELESS Condition: STABLE Referrals: NAVARRO RUIZ (PCP) Patient Instructions: Atrial Fibrillation, [id number], Hypokalemia-Brief CATHERINE CLEARY DO May 12, 2020 08:22
[2020-05-12 08:27] LABS: BASO # 0.1 x10^3/uL (0.0-0.2); BASO % 1 % (0-3); EOS % 0 % (0-3); HEMATOCRIT 48.3 % (39.0-53.0); HEMOGLOBIN 16.6 g/dL (13.0-17.5); LYMPH # 3.7 x10^3/uL (1.0-4.8); LYMPH % 29 % (24-48); MEAN CORPUSCULAR HEMOGLOBIN 31 pg (25-35); MEAN CORPUSCULAR HGB CONC 35 g/dL (31-37); MEAN CORPUSCULAR VOLUME 90 fL (79-100); MONO # 0.9 x10^3/uL (0.0-1.1); MONO % 7 % (0-9); NEUT % 63 % (31-73); PLATELET COUNT 240 x10^3/uL (140-400); RED BLOOD COUNT 5.37 x10^6/uL (4.30-5.70); RED CELL DISTRIBUTION WIDTH 12.6 % (11.5-14.5); WHITE BLOOD COUNT 12.8 x10^3/uL (4.0-11.0)
[2020-05-12 08:53] LABS: ALBUMIN 3.9 g/dL (3.4-5.0); CALCIUM 9.9 mg/dL (8.5-10.1); CREATININE 1.9 mg/dL (0.7-1.3); TOTAL BILIRUBIN 0.5 mg/dL (0.2-1.0); TOTAL PROTEIN 7.8 g/dL (6.4-8.2)
[2020-05-12] MEDS ORDERED: ONDANSETRON PF 4 MG/2 ML VIAL. IVP ONE (09:00)
[2020-05-12] MEDS ORDERED: POTASSIUM CHLORIDE 20 MEQ TABLET.ER. PO ONE (09:00)
[2020-05-12] MEDS ORDERED: IV NORMAL SALINE 1,000ML 1,000 ML IV ONE (09:00)
--- NOTE | 2020-05-12 09:51 | EKG ---
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
[2020-05-12 09:59] VITALS: BP 123/61
== END 2020-05-12 10:10 | disposition home or self-care (01) ==
LOC: ER 07:54
DX: I48.0 Paroxysmal atrial fibrillation (principal); E87.6 Hypokalemia; R79.89 Other specified abnormal findings of blood chemistry; I11.9 Hypertensive heart disease without heart failure; Z87.891 Personal history of nicotine dependence; Z88.1 Allergy status to other antibiotic agents; Z88.8 Allergy status to other drugs, medicaments and biological substances
CPT/HCPCS: 36415; 80053; 84484; 85025; 93005; 96360; 99285; J7030

== ENCOUNTER → 2021-03-16 | Outpatient (CLI) | payer BC, MEDICARE ==
--- NOTE | 2021-03-16 11:37 | RAD ---
EXAM: Left shoulder, 3 views. HISTORY: Pain. COMPARISON: None. FINDINGS: 3 views of the left shoulder obtained. There is no acute fracture, dislocation or subluxati on. There is a tiny benign bone island within the humeral head. There is a cardiac pacemaker partiall y included on the [id number]. There is cervical spinal fusion instrumentation. IMPRESSION: No acute osseous finding. Electronically signed by: Sridevi Garcia MD (03/16/2021 11:34 AM) [id number]
--- NOTE | 2021-03-16 12:24 | RAD ---
EXAM: Cervical spine, 5 views. HISTORY: Fusion. Fall. COMPARISON: None. FINDINGS: 5 views of the cervical spine are obtained. There is instrumented posterior spinal fusion a t C4-C7 and instrumented intraspinal fusion and interbody fusion at C4-C6. There is slight lucency moreno rrounding the anterior C4 screws. There is cervical kyphosis at C3-C4. There is no significant listhe sis. There is degenerative endplate remodeling with disc space narrowing and osteophytosis at C6-C7. There is multilevel facet arthropathy. There is a cardiac pacemaker, partially included on the field- of-view. IMPRESSION: 1. Instrumented anterior fusion and interbody fusion at C4-C6 and posterior fusion at C3-4 through C7 . There is slight lucency surrounding the anterior C4 screws.. This is not clearly within limits to s uggest significant instrumentation loosening. 2. Degenerative change predominantly at C6-C7. Electronically signed by: Sridevi Garcia MD (03/16/2021 12:21 PM) [id number]
== END ==
LOC: PMG 10:59
PROVIDERS: ATTEND Nurse Practitioner Family
DX: M47.812 Spondylosis without myelopathy or radiculopathy, cervical region (principal); Z98.1 Arthrodesis status; W19.XXXA Unspecified fall, initial encounter; M25.512 Pain in left shoulder
CPT/HCPCS: 72040; 73030

== ENCOUNTER 2021-07-11 19:54 | Emergency (ER) | payer BC, MEDICARE ==
[~2021-07-11] VITALS: Ht 172.7 cm; Wt 80.9 kg
[~2021-07-11 19:54] MED LIST changes: +TIZA-75 PO; -TIZA4TAB2 PO
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
[2021-07-11] MEDS ORDERED: IV RINGERS SOLUTION,LACTATED 1,000 ML IV SCH (20:15)
[2021-07-11 20:52] LABS: BASO % 0 % (0-3); EOS # 0.1 x10^3/uL (0.0-0.7); EOS % 1 % (0-3); HEMATOCRIT 36.8 % (39.0-53.0); HEMOGLOBIN 12.6 g/dL (13.0-17.5); LYMPH # 2.4 x10^3/uL (1.0-4.8); LYMPH % 41 % (24-48); MEAN CORPUSCULAR HEMOGLOBIN 32 pg (25-35); MEAN CORPUSCULAR HGB CONC 34 g/dL (31-37); MEAN CORPUSCULAR VOLUME 95 fL (79-100); MONO # 0.6 x10^3/uL (0.0-1.1); MONO % 10 % (0-9); NEUT # 2.8 x10^3uL (1.8-7.7); NEUT % 47 % (31-73); PLATELET COUNT 163 x10^3/uL (140-400); RED BLOOD COUNT 3.88 x10^6/uL (4.30-5.70); RED CELL DISTRIBUTION WIDTH 12.5 % (11.5-14.5); WHITE BLOOD COUNT 5.9 x10^3/uL (4.0-11.0)
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
[2021-07-11 21:01] LABS: CALCIUM 8.3 mg/dL (8.5-10.1); CREATININE 1.5 mg/dL (0.7-1.3); GFR 48.4; POTASSIUM 3.5 mmol/L (3.5-5.1)
[2021-07-11 21:14] LABS: ALBUMIN 3.2 g/dL (3.4-5.0); DIRECT BILIRUBIN 0.1 mg/dL (0.0-0.2); MAGNESIUM 2.4 mg/dL (1.8-2.4); TOTAL BILIRUBIN 0.3 mg/dL (0.2-1.0); TOTAL PROTEIN 6.3 g/dL (6.4-8.2)
[2021-07-11 21:15] LABS: INFLUENZA A PATIENT NEGATIVE (NEGATIVE); INFLUENZA B PATIENT NEGATIVE (NEGATIVE)
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
[2021-07-11] MEDS ORDERED: CONTRAST GIVEN. MC PRN (22:15)
[2021-07-11] MEDS ORDERED: IOHEXOL 350 MG/ML 100 ML VIAL. IV ONE (22:30)
[2021-07-11 22:53] LABS: BARBITURATES NEG (NEG); BENZODIAZEPINES POS (NEG); CANNABINOIDS NEG (NEG); COCAINE NEG (NEG); METHADONE NEG (NEG); OPIATES NEG (NEG); PHENCYCLIDINE NEG (NEG)
[2021-07-11 22:54] LABS: AMPHETAMINE/METHAMPHETAMINE NEG (NEG)
[2021-07-11 22:59] LABS: BACTERIA,URINE 0 /HPF (0-FEW); BILIRUBIN,URINE NEG (NEG); CLARITY,URINE CLEAR; COLOR,URINE YELLOW; GLUCOSE,URINE NEG (NEG); NITRITE,URINE NEG (NEG); RBC,URINE 0 /HPF (0-2); SQUAMOUS EPITHELIAL CELL,UR FEW /LPF; UROBILINOGEN,URINE 0.2 mg/dL (0.2 mg/dL)
--- NOTE | 2021-07-12 00:32 | EKG ---
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
[2021-07-12] MEDS ORDERED: AZITHROMYCIN 250 MG TABLET. PO ONE (01:30)
[2021-07-12 02:27] VITALS: BP 124/90
--- NOTE | 2021-07-12 02:29 | EKG ---
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
== END 2021-07-12 03:22 | disposition short-term general hospital (02) ==
LOC: ER 19:54
DX: S00.93XA Contusion of unspecified part of head, initial encounter (principal); S20.212A Contusion of left front wall of thorax, initial encounter; S37.92XA Contusion of unspecified urinary and pelvic organ, initial encounter; R41.82 Altered mental status, unspecified; D64.9 Anemia, unspecified; E86.0 Dehydration; M25.572 Pain in left ankle and joints of left foot; I48.91 Unspecified atrial fibrillation; G89.29 Other chronic pain; I11.9 Hypertensive heart disease without heart failure; Z20.822 Contact with and (suspected) exposure to COVID-19; Z86.73 Personal history of transient ischemic attack (TIA), and cerebral infarction without residual deficits; Z88.1 Allergy status to other antibiotic agents; Z87.891 Personal history of nicotine dependence; Z95.0 Presence of cardiac pacemaker; V43.92XA Unspecified car occupant injured in collision with other type car in traffic accident, initial encounter; Y93.89 Activity, other specified; Y92.89 Other specified places as the place of occurrence of the external cause; Y99.8 Other external cause status
CPT/HCPCS: 36415; 70450; 70496; 70498; 71250; 71275; 72125; 72131; 73552; 73562; 73610; 74176; 80048; 80076; 80307; 81001; 82550; 83690; 83735; 83880; 84443; 84484; 85025; 85379; 85610; 85730; 87426; 87804; 93005; 96361; 96374; 99285; C9803; G0480; J2060; J7120; Q9967; U0003

== ENCOUNTER → 2021-11-23 | Outpatient (CLI) | payer BC, MEDICARE ==
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
== END ==
LOC: RAD 09:26
PROVIDERS: ATTEND Physician Assistant Medical
DX: M19.032 Primary osteoarthritis, left wrist (principal); M25.78 Osteophyte, vertebrae; M25.842 Other specified joint disorders, left hand
CPT/HCPCS: 73110; 73130